=== PATIENT | female | born 1980 | race Caucasian/White ===

== ENCOUNTER 2024-08-06 19:46 | Emergency (ER) | payer OTHER, SELFPAY ==
--- NOTE | ~2024-08-06 | XR_ITS ---
EXAM: XR ankle RT min 3V, XR foot RT min 3V DATE: 08/06/2024 20:12 HISTORY: fall today rolled foot ankle Pain lateral medial . COMPARISON: None available. FINDINGS: Normal mineralization. No fracture or dislocation. No lytic or blastic lesion. Moderate preciado llux valgus. Moderate degenerative change at the first MTP joint. Chronic appearing flattening of the second metatarsal head. Os navicularis. No erosion or periosteal change. Soft tissues within normal limits. IMPRESSION: No acute osseous finding in the right foot or ankle. Reviewed, dictated and finalized at location K. IMPRESSION: No acute osseous finding in the right foot or ankle.
--- OUTSIDE RECORDS SUMMARY | 2024-08-06 19:48 | XMS_ITS | Referral Summary ---
Author Organization [facility] Address [address] [place] [address] Care Team Providers Care Green House Manager Name Role Phone Anurag Velez MD Primary Care Provider [phone] Encounters Date Type Department Care Team Description 06/09/2024 8:09 AM MAT MACHINE OPERATOR - 06/09/2024 11:59 PM MAT MACHINE OPERATOR Hospital Encounter [facility] [address] [place] [address] Screening mammogram, encounter for Discharge Disposition: Discharge to home or self care from Last 3 Months Allergies No known active allergies Medications levonorgestreL (MIRENA) IUDIndications: 12/2019 1 each by intrauterine route once Active Hospital, Clinic, or Other Facility Administered Medication Ordered Dose Route Frequency Start Date End Date Status levonorgestreL (MIRENA) 20 mcg/24 hours (5 yrs) 52 mg IUDIndications:Enc ounter for insertion of Mirena IUD intrauterine Continuous (implanted device) 01/05/2020 5 Active Active Problems No known active problems Resolved Problems Problem Noted Date Diagnosed Date Resolved Date AMA 12/30/2018 06/09/2019 hydronephrosis during , antepartum 11/30/2018 01/27/2019 Overview (11/30/2018): Recheck at 32 weeks incomplete anatomy 11/02/2018 9 Overview (11/02/2018): 11/02/2018 anatomy incomplete for heart views Low-lying placenta 11/02/2018 9 Overview (11/02/2018): 11/02/2018 Repeat in 3rd trimester Multigravida of advanced mat ernal age in first trimester 09/23/2018 06/09/2019 Overview (03/07/2019): First Trimester: [x] Labs [x] Genetic Screenin09/23/18: LR male 2nd Trimester: [x] Anatomy ultrasound 3rd Trimester: [x] CBC, HIV, syphilis screen [x] 1hr GCT (26-28wks): [] Tdap (27-36wks) [] Rhogam (if Rh neg): [x] GBS Immunizations Immunization Administration Dates Next Due Tdap 01/27/2019 Social History Tobacco Use Types Packs/Day Years Used Date Smoking Tobacco: Some Days Cigarettes Last attempted to quit: 09/02/2018 Smokeless Tobacco: Never Alcohol Use Standard Drinks/Week Comments Yes 0 (1 standard drink = 0.6 oz pur e alcohol) Hurley Depression Scale Answer Date Recorded Hurley Depression Scale Total 0 06/09/2019 The thought of harming myself has occurred to me . Never 06/09/2019 Comments No Sex and Gender Information Value Date Recorded Sex Assigned at Not on file Legal Sex Female 3:57 PM MAT MACHINE OPERATOR Gender Identity Not on file Sexual Orientation Not on file Last Filed Vital Signs Vital Sign Reading Time Taken Comments Blood Pressure 108/72 11/06/2021 3:14 PM CDT Pulse 62 12/02/2019 7:58 AM CDT Temperature 36.6 C (97.9 F) 12/02/2019 7:58 AM CDT Respiratory Rate - - Oxygen Saturation 100% 12/02/2019 7:58 AM CDT Inhaled Oxygen Concentration - - Weight 82.6 kg (182 lb) 11/06/2021 3:14 PM CDT Height 170.2 cm (5' 7.01 ) 11/06/2021 3:14 PM CD T Body Mass Index 28.5 11/06/2021 3:14 PM CDT Plan of Treatment Not on file Procedures Procedure Name Priority Date/Time Associated Diagnosis Comments SCREENING MAMMOGRAM BILATERAL W MIGUEL ANGEL Schedule Routine, Read Routine (OP Routine) 06/09/2024 8:29 AM MAT MACHINE OPERATOR Screening mammogram, encounter for THINPREP PAP WITH HPV Routine 06/09/2019 4:07 PM MAT MACHINE OPERATOR Encounter for annual routine gynecological examination HEPATITIS C ANTIBODY Routine 09/07/2018 6:04 PM CDT Missed menses from Last 3 Months or Most Recently Relevant to Health Maintenance Results * Screening Mammogram Bilateral W Miguel Angel (06/09/2024 8:29 AM MAT MACHINE OPERATOR) Anatomical Region Laterality Modality Breast Bilateral Mammography Impressions 06/09/2024 8:33 AM MAT MACHINE OPERATOR BI-RADS ATLAS category (overall): 2 - Benign There is no mammographic evidence of malignancy. A 1 year screening mammogram is recommended. The patient has been or will be contacted. We recommend annual screening mammography for women at average risk of breast cancer beginning at age 40, based on guidelines of the [employer] (ACR Practice Parameter for the Performance of Screening and Diagnostic Mammography) and [employer]. For women with and elevated risk of breast cancer, please refer to the ACR Practice Parameter for specific screening recommendations. The patient will be entered into a reminder system with a target due date of 1 year for her next screening exam. Narrative 06/09/2024 8:33 AM MAT MACHINE OPERATOR Screening Mammogram Bilateral W Miguel Angel: 06/09/24 The study was acquired using full field digital technology and interpreted from soft copy. 2D digital mammographic views, as well as 3D digital tomosynthesis were performed in the CC and MLO projections. CLINICAL: Screening mammogram, encounter for. No relevant medical history has been documented for this patient. History of breast cancer in Neg Hx. COMPARISONS: 01/22/2023 Screening Mammogram Bilateral W Miguel Angel 09/13/2021 US Breast Right Limited 09/13/2021 Diagnostic Mammogram Bilateral W Miguel Angel 09/29/2014 US Guided Breast Biopsy Right 06/29/2014 US Breast Right Complete 06/29/2014 Diagnostic Mammogram Bilateral W Miguel Angel BREAST TISSUE: The breasts are extremely dense, which lowers the sensitivity of mammography. FINDINGS: There is a biopsy clip in the right breast. There are benign calcifications in both breasts.There is no new suspicious finding in either breast on mammogram. us Self Screening Mammogram IMG MAMMO PROCEDURES Fi nal Result * ThinPrep Pap with HPV (06/09/2019 4:07 PM MAT MACHINE OPERATOR) 06/09/2019 4:07 PM MAT MACHINE OPERATOR 06/13/2019 12:36 PM MAT MACHINE OPERATOR Narrative [facility] - 06/16/2019 9:21 AM MAT MACHINE OPERATOR [facility] Department of Pathology [address] [place] [id number] Final Report with Addendum Patient Name: WOODROW KISER Address: [address] [place] [address] Gender: F : 1980 (Age: 39) Service: Laboratory Location: Lab [facility] #: [id number] Patient Type: Ref Lab Taken: 06/09/2019 Received: 06/13/2019 Accessioned:: 06/14/2019 Reported: 06/16/2019 Physician(s): Mona Coelho M.D. [facility] Diagnosis: Source of Specimen: SCREENING IMAGED PAP w/ HPV Specimen Adequacy: - Satisfactory for evaluation; endocervical/transformation zone component present General Category: - Negative for intraepithelial lesion or malignancy Interpretation/Results: - Reactive/reparative cell changes MADY Freed (ASCP) Jaylen Kingston M.D. Report Electronically Reviewed and Signed Out By Jaylen Kingston M.D. 06/16/2019 09:21:59 Addenda: HPV RNA Test Interpretation NEGATIVE for types 16, 18, 31, 33, 35, 39, 45, 51, 52, 56, 58, 59, 66 and 68. Test performed utilizing Gen-Probe Aptima assay. MADY Rivera(ASCP) Report Electronically Reviewed and Signed Out By JULIANA RiveraASCP) 06/15/2019 10:19:34 Specimen(s) Received: A: SCREENING IMAGED PAP w/ HPV Clinical History: Last Menstrual Period: 05/25/19 Menstrual History: The Pap test is a screening test used to aid in the detection of cervical cancer and its precursors. It should not be the sole means by which malignant and premalignant lesions are diagnosed. Both false negative and false positive results may occur. It also has poor sensitivity for the detection of endometrial lesions and should not be used to evaluate suspected endometrial abnormalities. For these reasons it is most important to obtain Pap tests at regular intervals. The performance characteristics of some immunohistochemical stains, fluorescence in-situ hybridization tests and immunophenotyping by flow cytometry cited in this report (if any) were determined by the Surgical Pathology Department at [facility] as part of an ongoing corporate quality assurance manager program and in compliance with federally mandated regulations drawn from the Clinical Laboratory Improvement Act of 1988 (CLIA '88). Some of these tests rely on the use of analyte specific reagents and are subject to specific labeling requirements by the US Food and Drug Administration. Such diagnostic tests may only be performed in a facility that is certified by the Department of Health and Human Services as a high complexity laboratory under CLIA '88. The FDA has determined that such clearance or approval is not necessary. This test is used for clinical purposes. It should not be regarded as investigational or for research. Nevertheless, federal rules concerning the medical use of analyte specific reagents require that the following disclaimer be attached to the report: This test was developed and its performance characteristics determined by the Surgical Pathology Department [facility]. It has not been cleared or approved by the U. S. Food and Drug Administration. Mona Coelho MD LAB CYTOLOGY ORDERABLES Final Re sult [id number] [place] [address] * Hepatitis C antibody (09/07/2018 6:04 PM CDT) Hep C Ab NONREACT NONREACTIVE [facility] Comment: Siemens CentaurXP using AMANDA (chemiluminescent immunoassay) technology. NONREACTIVE: Antibodies to Hepatitis C not detected. This does not exclude early acute Hepatitis C infection, possibility of exposure to Hepatitis C, antibodies below detection limit, or to lack of antibody reactivity to the antigen used in this assay. EQUIVOCAL: Antibodies to Hepatitis C may or may not be present. Sample to be confirmed by real-time PCR method. REACTIVE: Antibodies to Hepatitis C detected.Sample to be confirmed by real-time PCR method. Blood specimen (specimen) 09/07/2018 6:04 PM CDT 09/07/2018 7:17 PM CDT Narrative Resulting Agency Comment CLI Renee Flynn [facility] LAB MICROBIOLOGY - GENE RAL ORDERABLES Final Result [address] [address], [facility] [phone] from Last 3 Months or Most Recently Relevant to Health Maintenance Insurance [facility] [employer] PPO Care Teams Green House Manager Relationship Specialty Start Date End Date Anurag Velez MD [address] [place] [address] PCP - General Family Medicine 04/20/24
--- OUTSIDE RECORDS SUMMARY | 2024-08-06 19:48 | XMS_ITS | Patient Health Summary ---
Author Organization [facility] Address [address] [place] [address] Care Team Providers Care Band Sawing Machine Operator Name Role Phone Unavailable Primary Care Provider Unavailabl e Note from [facility],non-owned Affiliates and Associated Physician Practices is amultiple site organization consisting of ambulatory clinics and hospital sitesin [place], [place], [place] and [place]. This disclosure is being madepursuant to the Care Everywhere program and may not contain all information available regarding this patient. Last updated 18.[facility] Allergies No known active allergies Medications * Be aware that medications may not be up to date on this document. Alwaysverify current medications with the patient. * diclofenac sodium (VOLTAREN) 75 MG tablet(Started 02/04/2010) Take 1 Tab by mouth 2 times daily. 4 refills left Active Problems Problem Noted Date Diagnosed Date Degeneration of lumbar or lumbosacral interverte bral disc 02/04/2010 Social History Tobacco Use Types Packs/Day Years Used Date Smoking Tobacco: Passive Smo ke Exposure - Never Smoker Comments:occasional for past 2 years Alcohol Use Standard Drinks/Week Comments No 0 (1 standard drink = 0.6 oz pur e alcohol) Sex and Gender Information Value Date Recorded Sex Assigned at Not on file Gender Identity Not on file Sexual Orientation Not on file Last Filed Vital Signs Vital Sign Reading Time Taken Comments Blood Pressure - - Pulse - - Temperature - - Respiratory Rate - - Oxygen Saturation - - Inhaled Oxygen Concentration - - Weight 76.7 kg (169 lb) 02/04/2010 7:48 PM CDT Height 170.2 cm (5' 7 ) 02/04/2010 7:48 PM CDT Body Mass Index 26.47 02/04/2010 7:48 PM CDT
--- OUTSIDE RECORDS SUMMARY | 2024-08-06 19:48 | XMS_ITS | Clinical Summary ---
Author Organization [facility] Address [facility] [place] [address] Care Team Providers Care Canary Raiser Name Role Phone Rae Valero MD Primary Care Provider [phone] Allergies No known active allergies Immunizations Name Administration Dates Next Due Tdap (Boostrix) 07/16/2017 Social History Tobacco Use Types Packs/Day Years Used Date Smoking Tobacco: Never Assessed Comments No Sex and Gender Information Value Date Recorded Sex Assigned at Not on file Legal Sex Female 7:11 PM EMPLOYEE SERVICE OFFICER Gender Identity Not on file Sexual Orientation Not on file Last Filed Vital Signs Vital Sign Reading Time Taken Comments Blood Pressure 155/98 07/16/2017 7:15 PM EMPLOYEE SERVICE OFFICER Pulse 99 07/16/2017 7:15 PM EMPLOYEE SERVICE OFFICER Temperature 36.9 C (98.5 F) 07/16/2017 7:15 PM EMPLOYEE SERVICE OFFICER Respiratory Rate 18 07/16/2017 7:15 PM EMPLOYEE SERVICE OFFICER Oxygen Saturation 99% 07/16/2017 7:15 PM EMPLOYEE SERVICE OFFICER Inhaled Oxygen Concentration - - Weight 82.2 kg (181 lb 3.5 oz) 07/16/2017 7:15 P M EMPLOYEE SERVICE OFFICER Height 167.6 cm (5' 6 ) 07/16/2017 7:15 PM EMPLOYEE SERVICE OFFICER Body Mass Index 29.25 07/16/2017 7:15 PM EMPLOYEE SERVICE OFFICER Plan of Treatment Health Maintenance Due Date Last Done Comments Cervical Cancer Screening Pa p Smear (Age 30 to 64) Every 3 Years 1981 Annual Physical 02/16/1984 Hepatitis C 1999 Hepatitis B Vaccines (1 of 3 - 19+ 3-dose series) 02/16/2000 Cervical Cancer Screening Pa p with HPV Testing (Age 30 to 64) Every 5 Years 2011 Cervical Cancer Screening with HPV 2011 Mammogram Screening 2021 COVID-19 Vaccine (1 - 2023-2 5 season) 2024 Influenza Adult (#1) 2024 DTaP, Tdap and Td Vaccines ( 2 - Td or Tdap) 07/16/2027 07/16/2017 HPV Vaccines Aged Out No longer eligi ble based on patient's age to complete this topic Meningococcal B Vaccine Aged Out No l onger eligible based on patient's age to complete this topic Meningococcal Vaccine Aged Out No davey tasia eligible based on patient's age to complete this topic Pneumococcal Vaccine: Pediat rics (0 to 5 Years) and At-Risk Patients (6 to 64 Years) Aged Out No longer eligi ble based on patient's age to complete this topic RSV Immunizations Under 20 Months Aged Out No longer eligible based on patient's age to complete this topic Insurance Care Teams Canary Raiser Relationship Specialty Start Date End Date Rae Valero MD [address], [place] [address] PCP - General FAMILY PRACTICE 07/16/17
--- OUTSIDE RECORDS SUMMARY | 2024-08-06 19:48 | XMS_ITS | Data Portability ---
Author Organization [place] [facility], Main Office Address [address] [place] [address] Care Team Providers Care Weight Reduction Specialist Name Role Phone ANURAG VELEZ Primary Care Provider Assessment Encounter Date Assessment Date Assessment LastModified by Organization Details LastModified Time 07/29/2022 07/29/2022 SUPERVISOR COSTUMING- Reyes Humphries and UTD on Mammogram. Not available 07/29/2022 16:34:59 08/03/2023 08/03/2023 43 yo F with - WELL ADULT VISIT - SMOKER - OVERWEIGHT D/w pt about her findings, recent labs & imagines and further plan of care. Will do routine labs, cxr. Pt declined for hcg. Diet and exercise explained in detail. Educated about different options for her. HM: WWE - 2 yrs ago, normal as per pt. Cont f/u with Gyne as per schedule. Mammo - 10/14, normal as per pt. Pt gets with her Gyne. Flu - 08/03/23. Tdap - 07/12. F/u in 3-4 weeks. Annual labs in 08/16. Not available 08/03/2023 17:20:17 09/24/2023 09/24/2023 The patient gave verbal consent using TelePhonic services and the consent is documented in the medical record prior to using the service. The patient has been informed of what a TeleMedicine visit is. Patient is located at home. Provider is located at office. Names and roles of persons in addition to the patient and provider participating in telemedicine services include none. The patient had a 5 minute TeleMedicine consultation via groSolar to discuss the following: left eye lid swelling, periorbital cellulitis [email or web address] Not available 09/24/2023 11:37:17 Plan of Treatment Reminders Order Date Submit Date Provider Last Modified By Organization Details Last Modified Time Details Appointments None recorded. Lab vitamin D, 25-hydroxy, total, serum [address] (Lab), [address] [place], [address], 4 07:57:22 glycohemogl obin, total, blood [address] (Lab), [address] [place], [address], 4 07:57:22 CBC w/ auto diff [address] (Lab), [address] [place], [address], 4 07:57:21 CMP, serum or plasma [address] (Lab), [address] [place], [address], 4 07:57:21 lipid panel, serum [address] (Lab), [address] [place], [address], 4 07:57:21 TSH, serum, reflex free T4 [address] (Lab), [address] [place], [address], 4 07:57:22 urinalysis complete, reflex culture [address] (Lab), [address] [place], [address], 4 07:57:22 lipid panel, serum 2022 023 [facility], [address] [place], [address], 3 04:23:36 TSH, serum, reflex free T4 2022 023 [email or web address] [facility], [address] [place], [address], 3 08:00:39 CMP, serum or plasma 2022 023 [facility], [address] [place], [address], 3 04:23:37 HbA1c (hemoglobin A1c), blood 2022 023 [facility], [address] [place], [address], 3 04:23:40 CBC w/ auto diff 2022 023 [facility], [address] [place], [address], 3 04:23:38 Referral None recorded. Procedures None recorded. Surgeries None recorded. Imaging XR, chest, 2 view 2023 024 [email or web address] Not available 4 08:59:54 Medication Orders doxycycline monohydrate 100 mg capsule 2023 024 [facility] #[id number], [address] [place], [place], [id number], 4 11:47:33 nicotine 7 mg/24 hr daily transdermal patch 2023 024 [facility] #[id number], [address] [place], [place], [id number], 4 17:19:30 Patient TargetsNo targets recorded. Patient Instructions Encounter Date Encounter Id Patient Instructions Last Modified By Organization Details Last Modified Time 07/29/2022 [id number] FU in 1 year for wellness after 07/30/23 Not available 07/29/2022 16:34:39 08/03/2023 [id number] starting a weigh t loss plan: care instructions [email or web address] Not available 08/03/2023 17:11:51 09/24/2023 [id number] Due to the COVID-19 (Novel Coronavirus) pandemic, it is within this context (and with the understanding that this method of patient encounter is in the patient s best interest as well as the health and safety of other patients and the public) that telehealth is being provided for this patient encounter rather than a tapl-ap-vred visit. This patient encounter is appropriate at this time. This patient has been advised of the potential risks and limitations of this mode of treatment (including, but not limited to, the absence of in-person examination) and has agreed to be treated in a remote fashion despite these risks. Any and all of the patient s/patient s family s questions on this issue have been answered, and I have made no promises or guarantees to the patient. The patient has also been advised to contact this office for worsening conditions or problems, and seek emergency medical treatment and/or call 911 if the patient deems either necessary. HPI and/or vitals, if listed, were provided by the patient. [email or web address] Not available 09/24/2023 11:23:22 Reason for Referral None Reported. Results Created Date Observation Date Name Description Value Unit Range Abnormal Flag Note LastModifiedBy Organization Detail LastModifiedTime 09/21/1909/21/2020 TSH, serum or plasm a TSH w/reflex to FT4 1.19 mIU/L normal Refer ence Range > or = 20 Years 0.40- 4.50 Pregn margarito Range s First trime ster 0.26- 2.66 Secon d trime ster 0.55- 2.73 Third trime ster 0.43- 2.91 Not Available [employer] [facility] [address] [address] , [place], [address], 09/21/2020 04:15:40 09/21/19 21 09/21/2020 CBC w/ auto diff hemoglobin 14.4 g/dL 11.7-1 5.5 normal Not Available [address], [address], 09/21/2020 04:15:39 09/21/19 21 09/21/2020 CBC w/ auto diff white blood cell count 5.5 thous and/u L 3.8-10 .8 normal Not Available [address], [address], 09/21/2020 04:15:39 09/21/19 21 09/21/2020 CBC w/ auto diff red blood cell count 4.72 nargis on/uL 3.80-5 .10 normal Not Available [address], [address], 09/21/2020 04:15:39 09/21/19 21 09/21/2020 CBC w/ auto diff hematocrit 42.1 % 35.0-4 5.0 normal Not Available [address], [address], 09/21/2020 04:15:39 09/21/19 21 09/21/2020 CBC w/ auto diff MCV 89.2 fL 80.0-1 00.0 normal Not Available [address], [address], 09/21/2020 04:15:39 09/21/19 21 09/21/2020 CBC w/ auto diff MCH 30.5 pg 27.0-3 3.0 normal Not Available [address], [address], 09/21/2020 04:15:39 09/21/19 21 09/21/2020 CBC w/ auto diff MCHC 34.2 g/dL 32.0-3 6.0 normal Not Available [address], [address], 09/21/2020 04:15:39 09/21/19 21 09/21/2020 CBC w/ auto diff RDW 12.0 % 11.0-1 5.0 normal Not Available [address], [address], 09/21/2020 04:15:39 09/21/19 21 09/21/2020 CBC w/ auto diff platelet count 201 thous and/u L 140-40 0 normal Not Available [address], [address], 09/21/2020 04:15:39 09/21/19 21 09/21/2020 CBC w/ auto diff MPV 10.2 fL 7.5-12 .5 normal Not Available [address], [address], 09/21/2020 04:15:39 09/21/19 21 09/21/2020 CBC w/ auto diff absolute neutrophils 3537 cells /uL 1500-7 800 normal Not Available [address], [address], 09/21/2020 04:15:39 09/21/19 21 09/21/2020 CBC w/ auto diff absolute lymphocytes 1535 cells /uL 850-39 00 normal Not Available [address], [address], 09/21/2020 04:15:39 09/21/19 21 09/21/2020 CBC w/ auto diff absolute monocytes 341 cells /uL 200-95 0 normal Not Available [address], [address], 09/21/2020 04:15:39 09/21/19 21 09/21/2020 CBC w/ auto diff absolute eosinophils 61 cells /uL 15-500 normal Not Available [address], [address], 09/21/2020 04:15:39 09/21/19 21 09/21/2020 CBC w/ auto diff absolute basophils 28 cells /uL 0-200 normal Not Available [address], [address], 09/21/2020 04:15:39 09/21/19 21 09/21/2020 CBC w/ auto diff neutrophils 64.3 % normal Not Available [address], [address], 09/21/2020 04:15:39 09/21/19 21 09/21/2020 CBC w/ auto diff lymphocytes 27.9 % normal Not Available [address], [address], 09/21/2020 04:15:39 09/21/19 21 09/21/2020 CBC w/ auto diff monocytes 6.2 % normal Not Available [address], [address], 09/21/2020 04:15:39 09/21/19 21 09/21/2020 CBC w/ auto diff eosinophils 1.1 % normal Not Available [address], [address], 09/21/2020 04:15:39 09/21/19 21 09/21/2020 CBC w/ auto diff basophils 0.5 % normal Not Available [address], [address], 09/21/2020 04:15:39 09/21/19 21 09/21/2020 CMP, serum or plasm a glucose 92 mg/dL 65-99 normal Fasti ng refer ence inter merritt Not Available [address], [address], 09/21/2020 04:15:39 09/21/19 21 09/21/2020 CMP, serum or plasm a urea nitrogen (BUN) 10 mg/dL 7-25 normal Not Available [address], [address], 09/21/2020 04:15:39 09/21/19 21 09/21/2020 CMP, serum or plasm a creatinine 0.62 mg/dL 0.50-1 .10 normal Not Available [address], [address], 09/21/2020 04:15:39 09/21/19 21 09/21/2020 CMP, serum or plasm a eGFR non-afr. moldovan 114 mL/mi n/1.7 3m2 > or = 60 normal Not Available [address], [address], 09/21/2020 04:15:39 09/21/19 21 09/21/2020 CMP, serum or plasm a eGFR 132 mL/mi n/1.7 3m2 > or = 60 normal Not Available [address], [address], 09/21/2020 04:15:39 09/21/19 21 09/21/2020 CMP, serum or plasm a BUN/creatini ne ratio not applic able (calc ) 6-22 Not Available [address], [address], 09/21/2020 04:15:39 09/21/19 21 09/21/2020 CMP, serum or plasm a sodium 137 mmol/ L 135-14 6 normal Not Available [facility] [address], [address], 09/21/2020 04:15:39 09/21/19 21 09/21/2020 CMP, serum or plasm a potassium 4.0 mmol/ L 3.5-5. 3 normal Not Available [facility] [address] [address] [place], [address], 09/21/2020 04:15:39 09/21/19 21 09/21/2020 CMP, serum or plasm a chloride 104 mmol/ L 98-110 normal Not Available [address], [address], 09/21/2020 04:15:39 09/21/19 21 09/21/2020 CMP, serum or plasm a carbon dioxide 27 mmol/ L 20-32 normal Not Available [address], [address], 09/21/2020 04:15:39 09/21/19 21 09/21/2020 CMP, serum or plasm a calcium 9.2 mg/dL 8.6-10 .2 normal Not Available [address], [address], 09/21/2020 04:15:39 09/21/19 21 09/21/2020 CMP, serum or plasm a protein, total 6.8 g/dL 6.1-8. 1 normal Not Available [address], [address], 09/21/2020 04:15:39 09/21/19 21 09/21/2020 CMP, serum or plasm a albumin 4.4 g/dL 3.6-5. 1 normal Not Available [address], [address], 09/21/2020 04:15:39 09/21/19 21 09/21/2020 CMP, serum or plasm a globulin 2.4 g/dL_ (calc ) 1.9-3. 7 normal Not Available [address], [address], 09/21/2020 04:15:39 09/21/19 21 09/21/2020 CMP, serum or plasm a albumin/glob ulin ratio 1.8 (calc ) 1.0-2. 5 normal Not Available [address], [place], [address], 09/21/2020 04:15:39 09/21/19 21 09/21/2020 CMP, serum or plasm a bilirubin, total 0.8 mg/dL 0.2-1. 2 normal Not Available [facility] [address] [address] [place], [address], 09/21/2020 04:15:39 09/21/19 21 09/21/2020 CMP, serum or plasm a alkaline phosphatase 56 U/L 31-125 normal Not Available [facility] [address] [address] [place], [address], 09/21/2020 04:15:39 09/21/19 21 09/21/2020 CMP, serum or plasm a AST 11 U/L 10-30 normal Not Available [address] [address] [place], [address], 09/21/2020 04:15:39 09/21/19 21 09/21/2020 CMP, serum or plasm a ALT 7 U/L 6-29 normal Not Available [address], [address], 09/21/2020 04:15:39 09/21/19 21 09/21/2020 lipid panel , serum LDL-choleste rol 72 mg/dL _(parris c) normal Refer ence range : <100 Janie able range <100 mg/dL for prima ry preve ntion ; <70 mg/dL for patie nts with CHD or diabe tic patie nts with > or = 2 CHD risk facto rs. LDL-C is now calcu lated using the Alexandrea n-Hop kins moreno szymanski n, which is a valid ated novel naseem pena accur acy than the Fried kasey equat ion in the estim ation of LDL-C . Alexandrea vo SS et al. RONNIE. 2013; 310(1 9): 2061- 2068 (http ://ed ucati on.Qu estDi agnos tics. com/f aq/FA Q164) Not Available [address] [address] [place], [address], 09/21/2020 04:15:39 09/21/19 21 09/21/2020 lipid panel , serum cholesterol, total 148 mg/dL <200 normal Not Available [address] [address] [place], [address], 09/21/2020 04:15:39 09/21/19 21 09/21/2020 lipid panel , serum HDL cholesterol 56 mg/dL > or = 50 normal Not Available [address] [address] [place], [address], 09/21/2020 04:15:39 09/21/19 21 09/21/2020 lipid panel , serum triglyceride s 110 mg/dL <150 normal Not Available [address] [address] [place], [address], 09/21/2020 04:15:39 09/21/19 21 09/21/2020 lipid panel , serum chol/HDLC ratio 2.6 (calc ) <5.0 normal Not Available [address] [address] [place], [address], 09/21/2020 04:15:39 09/21/19 21 09/21/2020 lipid panel , serum non HDL cholesterol 92 mg/dL _(parris c) <130 normal For patie nts with diabe lashae plus 1 major ASCVD risk facto r, treat ing to a non-H DL-C goal of <100 mg/dL (LDL- C of <70 mg/dL ) is becky augusteo n. Not Available [address] [address] [place], [address], 09/21/2020 04:15:39 08/02/19 22 08/02/2021 HEMOG LOBIN A1C hemoglobin A1C 4.8 %_of_ total _HGB <5.7 normal For the purpo se of sridevi rowellg for the prese nce of diabe lashae: <5.7% Consi stent with the absen ce of diabe lashae 5.7-6 .4% Consi stent with incre ased risk for diabe lashae (pred iabet es) > or =6.5% Consi stent with diabe lashae This assay resul t is consi stent with a decre ased risk of diabe lashae. Curre ntly, no conse nsus exist s juwan sanchez use of hemog lobin A1c for diagn osis of diabe lashae in child irish. Accor ding to Ameri can Diabe lashae Assoc iatio n (ADA) guide lines , hemog lobin A1c <7.0% repre sents optim al contr ol in non-p regna nt diabe tic patie nts. Diffe rent metri cs may apply to speci fic patie nt popul ation s. Stand ards of Medic al Care in Diabe lashae(A DA). Not Available [employer] [address] [address] [place], [address], 08/02/2021 04:26:24 08/02/19 22 08/02/2021 TSH W/REF FILI TO FT4 TSH w/reflex to FT4 1.68 mIU/L normal Refer ence Range > or = 20 Years 0.40- 4.50 Pregn margarito Range s First trime ster 0.26- 2.66 Secon d trime ster 0.55- 2.73 Third trime ster 0.43- 2.91 Not Available [facility] [address] [address] [place], [address], 08/02/2021 04:26:24 08/02/19 22 08/02/2021 CBC (INCL UDES DIFF/ PLT) white blood cell count 5.1 thous and/u L 3.8-10 .8 normal Not Available [facility] [address] [place], [address], 08/02/2021 04:26:23 08/02/19 22 08/02/2021 CBC (INCL UDES DIFF/ PLT) red blood cell count 4.83 nargis on/uL 3.80-5 .10 normal Not Available [address], [address], 08/02/2021 04:26:23 08/02/19 22 08/02/2021 CBC (INCL UDES DIFF/ PLT) hemoglobin 14.6 g/dL 11.7-1 5.5 normal Not Available [address], [address], 08/02/2021 04:26:23 08/02/19 22 08/02/2021 CBC (INCL UDES DIFF/ PLT) hematocrit 42.9 % 35.0-4 5.0 normal Not Available [address], [address], 08/02/2021 04:26:23 08/02/19 22 08/02/2021 CBC (INCL UDES DIFF/ PLT) MCV 88.8 fL 80.0-1 00.0 normal Not Available [address], [address], 08/02/2021 04:26:23 08/02/19 22 08/02/2021 CBC (INCL UDES DIFF/ PLT) MCH 30.2 pg 27.0-3 3.0 normal Not Available [address], [address], 08/02/2021 04:26:23 08/02/19 22 08/02/2021 CBC (INCL UDES DIFF/ PLT) MCHC 34.0 g/dL 32.0-3 6.0 normal Not Available [address], [address], 08/02/2021 04:26:23 08/02/19 22 08/02/2021 CBC (INCL UDES DIFF/ PLT) RDW 12.1 % 11.0-1 5.0 normal Not Available [address], [place], [address], 08/02/2021 04:26:23 08/02/19 22 08/02/2021 CBC (INCL UDES DIFF/ PLT) platelet count 219 thous and/u L 140-40 0 normal Not Available [address], [address], 08/02/2021 04:26:23 08/02/19 22 08/02/2021 CBC (INCL UDES DIFF/ PLT) MPV 10.3 fL 7.5-12 .5 normal Not Available [facility] [address], [address], 08/02/2021 04:26:23 08/02/19 22 08/02/2021 CBC (INCL UDES DIFF/ PLT) absolute neutrophils 2943 cells /uL 1500-7 800 normal Not Available [address], [address], 08/02/2021 04:26:23 08/02/19 22 08/02/2021 CBC (INCL UDES DIFF/ PLT) absolute lymphocytes 1709 cells /uL 850-39 00 normal Not Available [address], [address], 08/02/2021 04:26:23 08/02/19 22 08/02/2021 CBC (INCL UDES DIFF/ PLT) absolute monocytes 357 cells /uL 200-95 0 normal Not Available [address], [address], 08/02/2021 04:26:23 08/02/19 22 08/02/2021 CBC (INCL UDES DIFF/ PLT) absolute eosinophils 61 cells /uL 15-500 normal Not Available [address], [address], 08/02/2021 04:26:23 08/02/19 22 08/02/2021 CBC (INCL UDES DIFF/ PLT) absolute basophils 31 cells /uL 0-200 normal Not Available [address], [address], 08/02/2021 04:26:23 08/02/19 22 08/02/2021 CBC (INCL UDES DIFF/ PLT) neutrophils 57.7 % normal Not Available [address], [address], 08/02/2021 04:26:23 08/02/19 22 08/02/2021 CBC (INCL UDES DIFF/ PLT) lymphocytes 33.5 % normal Not Available [address], [address], 08/02/2021 04:26:23 08/02/19 22 08/02/2021 CBC (INCL UDES DIFF/ PLT) monocytes 7.0 % normal Not Available [address], [address], 08/02/2021 04:26:23 08/02/19 22 08/02/2021 CBC (INCL UDES DIFF/ PLT) eosinophils 1.2 % normal Not Available [address], [address], 08/02/2021 04:26:23 08/02/19 22 08/02/2021 CBC (INCL UDES DIFF/ PLT) basophils 0.6 % normal Not Available [address], [address], 08/02/2021 04:26:23 08/02/19 22 08/02/2021 COMPR EHENS MATT METAB OLIC PANEL eGFR non-afr. moldovan 111 mL/mi n/1.7 3m2 > or = 60 normal Not Available [address], [address], 08/02/2021 04:26:22 08/02/19 22 08/02/2021 COMPR EHENS MATT METAB OLIC PANEL glucose 86 mg/dL 65-99 normal Fasti ng refer ence inter merritt Not Available [address], [address], 08/02/2021 04:26:22 08/02/19 22 08/02/2021 COMPR EHENS MATT METAB OLIC PANEL urea nitrogen (BUN) 11 mg/dL 7-25 normal Not Available [address], [address], 08/02/2021 04:26:22 08/02/19 22 08/02/2021 COMPR EHENS MATT METAB OLIC PANEL creatinine 0.65 mg/dL 0.50-1 .10 normal Not Available [address], [address], 08/02/2021 04:26:22 08/02/19 22 08/02/2021 COMPR EHENS MATT METAB OLIC PANEL eGFR 129 mL/mi n/1.7 3m2 > or = 60 normal Not Available [address], [address], 08/02/2021 04:26:22 08/02/19 22 08/02/2021 COMPR EHENS MATT METAB OLIC PANEL BUN/creatini ne ratio not applic able (calc ) 6-22 Not Available [address], [address], 08/02/2021 04:26:22 08/02/19 22 08/02/2021 COMPR EHENS MATT METAB OLIC PANEL sodium 140 mmol/ L 135-14 6 normal Not Available [address], [address], 08/02/2021 04:26:22 08/02/19 22 08/02/2021 COMPR EHENS MATT METAB OLIC PANEL potassium 4.0 mmol/ L 3.5-5. 3 normal Not Available [address] [place], [address], 08/02/2021 04:26:22 08/02/19 22 08/02/2021 COMPR EHENS MATT METAB OLIC PANEL chloride 105 mmol/ L 98-110 normal Not Available [facility] [address], [address], 08/02/2021 04:26:22 08/02/19 22 08/02/2021 COMPR EHENS MATT METAB OLIC PANEL carbon dioxide 28 mmol/ L 20-32 normal Not Available [facility] [address], [address], 08/02/2021 04:26:22 08/02/19 22 08/02/2021 COMPR EHENS MATT METAB OLIC PANEL calcium 9.3 mg/dL 8.6-10 .2 normal Not Available [address], [address], 08/02/2021 04:26:22 08/02/19 22 08/02/2021 COMPR EHENS MATT METAB OLIC PANEL protein, total 6.8 g/dL 6.1-8. 1 normal Not Available [facility] [address], [address], 08/02/2021 04:26:22 08/02/19 22 08/02/2021 COMPR EHENS MATT METAB OLIC PANEL albumin 4.6 g/dL 3.6-5. 1 normal Not Available [address], [address], 08/02/2021 04:26:22 08/02/19 22 08/02/2021 COMPR EHENS MATT METAB OLIC PANEL globulin 2.2 g/dL_ (calc ) 1.9-3. 7 normal Not Available [facility] [address], [address], 08/02/2021 04:26:22 08/02/19 22 08/02/2021 COMPR EHENS MATT METAB OLIC PANEL albumin/glob ulin ratio 2.1 (calc ) 1.0-2. 5 normal Not Available [address], [address], 08/02/2021 04:26:22 08/02/19 22 08/02/2021 COMPR EHENS MATT METAB OLIC PANEL bilirubin, total 0.8 mg/dL 0.2-1. 2 normal Not Available [address] [address] [place], [address], 08/02/2021 04:26:22 08/02/19 22 08/02/2021 COMPR EHENS MATT METAB OLIC PANEL alkaline phosphatase 53 U/L 31-125 normal Not Available [address] [address] [place], [address], 08/02/2021 04:26:22 08/02/19 22 08/02/2021 COMPR EHENS MATT METAB OLIC PANEL AST 10 U/L 10-30 normal Not Available [address], [address], 08/02/2021 04:26:22 08/02/19 22 08/02/2021 COMPR EHENS MATT METAB OLIC PANEL ALT 8 U/L 6-29 normal Not Available [address] [address] [place], [address], 08/02/2021 04:26:22 08/02/19 22 08/02/2021 LIPID PANEL , STAND ALISSA non HDL cholesterol 108 mg/dL _(parris c) <130 normal For patie nts with diabe lashae plus 1 major ASCVD risk facto r, treat ing to a non-H DL-C goal of <100 mg/dL (LDL- C of <70 mg/dL ) is consi miked a manuel peuti c optio n. Not Available [address] [address] [place], [address], 08/02/2021 04:26:22 08/02/19 22 08/02/2021 LIPID PANEL , STAND ALISSA cholesterol, total 160 mg/dL <200 normal Not Available [address], [address], 08/02/2021 04:26:22 08/02/19 22 08/02/2021 LIPID PANEL , STAND ALISSA HDL cholesterol 52 mg/dL > or = 50 normal Not Available [address], [address], 08/02/2021 04:26:22 08/02/19 22 08/02/2021 LIPID PANEL , STAND ALISSA triglyceride s 119 mg/dL <150 normal Not Available [address], [address], 08/02/2021 04:26:22 08/02/19 22 08/02/2021 LIPID PANEL , STAND ALISSA LDL-choleste rol 86 mg/dL _(parris c) normal Refer ence range : <100 Janie able range <100 mg/dL for prima ry preve ntion ; <70 mg/dL for patie nts with CHD or diabe tic patie nts with > or = 2 CHD risk facto rs. LDL-C is now calcu lated using the Alexandrea n-Hop kins calcu nessa n, which is a valid ated novel elvino d janeen mcdonald r accur acy than the Fried kasey equat ion in the estim ation of LDL-C . Alexandrea vo SS et al. RONNIE. 2013; 310(1 9): 2061- 2068 (http ://ed ucati on.Qu [employer]. com/f aq/FA Q164) Not Available [address] [address] [place], [address], 08/02/2021 04:26:22 08/02/19 22 08/02/2021 LIPID PANEL , STAND ALISSA chol/HDLC ratio 3.1 (calc ) <5.0 normal Not Available [address] [place], [address], 08/02/2021 04:26:22 08/16/1908/16/2022 LIPID PANEL , STAND ALISSA cholesterol, total 159 mg/dL <200 normal Not Available [facility] [address] [address] [place], [address], 08/16/2022 04:23:36 08/16/1908/16/2022 LIPID PANEL , STAND ALISSA HDL cholesterol 58 mg/dL > or = 50 normal Not Available [facility] [address] [address] [place], [address], 08/16/2022 04:23:36 08/16/1908/16/2022 LIPID PANEL , STAND ALISSA triglyceride s 97 mg/dL <150 normal Not Available [address] [address] [place], [address], 08/16/2022 04:23:36 08/16/1908/16/2022 LIPID PANEL , STAND ALISSA LDL-choleste rol 82 mg/dL _(parris c) normal Refer ence range : <100 Janie able range <100 mg/dL for prima ry preve ntion ; <70 mg/dL for patie nts with CHD or diabe tic patie nts with > or = 2 CHD risk facto rs. LDL-C is now calcu lated using the Alexandrea n-Hop kins moreno szymanski n, which is a valid ated novel elvino tracey pena accur acy than the Fried kasey equat ion in the estim ation of LDL-C . Alexandrea vo SS et al. RONNIE. 2013; 310(1 9): 2061- 2068 (http ://ed ucati on.Qu Duy [employer]. com/f aq/FA Q164) Not Available [facility] [address] [address] [address] , [place], [address], 08/16/2022 04:23:36 08/16/1908/16/2022 LIPID PANEL , STAND ALISSA chol/HDLC ratio 2.7 (calc ) <5.0 normal Not Available [address], [address], 08/16/2022 04:23:36 08/16/19 23 08/16/2022 LIPID PANEL , STAND ALISSA non HDL cholesterol 101 mg/dL _(parris c) <130 normal For patie nts with diabe lashae plus 1 major ASCVD risk facto r, treat ing to a non-H DL-C goal of <100 mg/dL (LDL- C of <70 mg/dL ) is consi dered a thera peuti c optio n. Not Available [address], [address], 08/16/2022 04:23:36 08/16/19 23 08/16/2022 COMPR EHENS MATT METAB OLIC PANEL glucose 77 mg/dL 65-99 normal Fasti ng refer ence inter merritt Not Available [address] [address] [place], [address], 08/16/2022 04:23:37 08/16/19 23 08/16/2022 COMPR EHENS MATT METAB OLIC PANEL urea nitrogen (BUN) 10 mg/dL 7-25 normal Not Available [facility] [address], [address], 08/16/2022 04:23:37 08/16/19 23 08/16/2022 COMPR EHENS MATT METAB OLIC PANEL creatinine 0.72 mg/dL 0.50-0 .99 normal Not Available [facility] [facility] [address], [address], 08/16/2022 04:23:37 08/16/19 23 08/16/2022 COMPR EHENS MATT METAB OLIC PANEL eGFR 108 mL/mi n/1.7 3m2 > or = 60 normal The eGFR is based on the CKD-E PI 2020 equat ion. To calcu late the new eGFR from a previ ous Creat inine or Cysta tin C resul t, go to https ://yuki mars.[email or web address] [email or web address] zacarias/pr ofess ional s/ kdoqi /gfr% 5Fcal culat or Not Available [address], [address], 08/16/2022 04:23:37 08/16/19 23 08/16/2022 COMPR EHENS MATT METAB OLIC PANEL BUN/creatini ne ratio NOT APPLIC ABLE (calc ) 6-22 Not Available [address], [address], 08/16/2022 04:23:37 08/16/19 23 08/16/2022 COMPR EHENS MATT METAB OLIC PANEL sodium 140 mmol/ L 135-14 6 normal Not Available [address], [address], 08/16/2022 04:23:37 08/16/19 23 08/16/2022 COMPR EHENS MATT METAB OLIC PANEL potassium 4.0 mmol/ L 3.5-5. 3 normal Not Available [address], [address], 08/16/2022 04:23:37 08/16/19 23 08/16/2022 COMPR EHENS MATT METAB OLIC PANEL chloride 106 mmol/ L 98-110 normal Not Available [address], [address], 08/16/2022 04:23:37 08/16/19 23 08/16/2022 COMPR EHENS MATT METAB OLIC PANEL carbon dioxide 26 mmol/ L 20-32 normal Not Available [address], [address], 08/16/2022 04:23:37 08/16/19 23 08/16/2022 COMPR EHENS MATT METAB OLIC PANEL calcium 9.2 mg/dL 8.6-10 .2 normal Not Available [address], [address], 08/16/2022 04:23:37 08/16/19 23 08/16/2022 COMPR EHENS MATT METAB OLIC PANEL protein, total 6.6 g/dL 6.1-8. 1 normal Not Available [address], [address], 08/16/2022 04:23:37 08/16/19 23 08/16/2022 COMPR EHENS MATT METAB OLIC PANEL albumin 4.5 g/dL 3.6-5. 1 normal Not Available [address], [address], 08/16/2022 04:23:37 08/16/19 23 08/16/2022 COMPR EHENS MATT METAB OLIC PANEL globulin 2.1 g/dL_ (calc ) 1.9-3. 7 normal Not Available [address], [address], 08/16/2022 04:23:37 08/16/19 23 08/16/2022 COMPR EHENS MATT METAB OLIC PANEL albumin/glob ulin ratio 2.1 (calc ) 1.0-2. 5 normal Not Available [address], [address], 08/16/2022 04:23:37 08/16/19 23 08/16/2022 COMPR EHENS MATT METAB OLIC PANEL bilirubin, total 0.6 mg/dL 0.2-1. 2 normal Not Available [address], [address], 08/16/2022 04:23:37 08/16/19 23 08/16/2022 COMPR EHENS MATT METAB OLIC PANEL alkaline phosphatase 53 U/L 31-125 normal Not Available [address], [address], 08/16/2022 04:23:37 08/16/19 23 08/16/2022 COMPR EHENS MATT METAB OLIC PANEL AST 13 U/L 10-30 normal Not Available [address], [address], 08/16/2022 04:23:37 08/16/19 23 08/16/2022 COMPR EHENS MATT METAB OLIC PANEL ALT 9 U/L 6-29 normal Not Available [address], [address], 08/16/2022 04:23:37 08/16/19 23 08/16/2022 CBC (INCL UDES DIFF/ PLT) white blood cell count 7.1 thous and/u L 3.8-10 .8 normal Not Available [address], [address], 08/16/2022 04:23:38 08/16/19 23 08/16/2022 CBC (INCL UDES DIFF/ PLT) red blood cell count 4.78 nargis on/uL 3.80-5 .10 normal Not Available [address], [address], 08/16/2022 04:23:38 08/16/19 23 08/16/2022 CBC (INCL UDES DIFF/ PLT) hemoglobin 14.8 g/dL 11.7-1 5.5 normal Not Available [address], [address], 08/16/2022 04:23:38 08/16/19 23 08/16/2022 CBC (INCL UDES DIFF/ PLT) hematocrit 42.9 % 35.0-4 5.0 normal Not Available [address], [address], 08/16/2022 04:23:38 08/16/19 23 08/16/2022 CBC (INCL UDES DIFF/ PLT) MCV 89.7 fL 80.0-1 00.0 normal Not Available [address], [address], 08/16/2022 04:23:38 08/16/19 23 08/16/2022 CBC (INCL UDES DIFF/ PLT) MCH 31.0 pg 27.0-3 3.0 normal Not Available [address], [address], 08/16/2022 04:23:38 08/16/19 23 08/16/2022 CBC (INCL UDES DIFF/ PLT) MCHC 34.5 g/dL 32.0-3 6.0 normal Not Available [address], [address], 08/16/2022 04:23:38 08/16/1908/16/2022 CBC (INCL UDES DIFF/ PLT) RDW 12.3 % 11.0-1 5.0 normal Not Available [address], [address], 08/16/2022 04:23:38 08/16/19 23 08/16/2022 CBC (INCL UDES DIFF/ PLT) platelet count 220 thous and/u L 140-40 0 normal Not Available [address], [address], 08/16/2022 04:23:38 08/16/19 23 08/16/2022 CBC (INCL UDES DIFF/ PLT) MPV 10.1 fL 7.5-12 .5 normal Not Available [address], [address], 08/16/2022 04:23:38 08/16/19 23 08/16/2022 CBC (INCL UDES DIFF/ PLT) absolute neutrophils 4381 cells /uL 1500-7 800 normal Not Available [address], [address], 08/16/2022 04:23:38 08/16/19 23 08/16/2022 CBC (INCL UDES DIFF/ PLT) absolute lymphocytes 2024 cells /uL 850-39 00 normal Not Available [address], [address], 08/16/2022 04:23:38 08/16/19 23 08/16/2022 CBC (INCL UDES DIFF/ PLT) absolute monocytes 525 cells /uL 200-95 0 normal Not Available [address], [address], 08/16/2022 04:23:38 08/16/19 23 08/16/2022 CBC (INCL UDES DIFF/ PLT) absolute eosinophils 128 cells /uL 15-500 normal Not Available [address], [address], 08/16/2022 04:23:38 08/16/19 23 08/16/2022 CBC (INCL UDES DIFF/ PLT) absolute basophils 43 cells /uL 0-200 normal Not Available [address], [address], 08/16/2022 04:23:38 08/16/19 23 08/16/2022 CBC (INCL UDES DIFF/ PLT) neutrophils 61.7 % normal Not Available [address], [address], 08/16/2022 04:23:38 08/16/19 23 08/16/2022 CBC (INCL UDES DIFF/ PLT) lymphocytes 28.5 % normal Not Available [address], [address], 08/16/2022 04:23:38 08/16/19 23 08/16/2022 CBC (INCL UDES DIFF/ PLT) monocytes 7.4 % normal Not Available [address], [address], 08/16/2022 04:23:38 08/16/1908/16/2022 CBC (INCL UDES DIFF/ PLT) eosinophils 1.8 % normal Not Available [address], [address], 08/16/2022 04:23:38 08/16/1908/16/2022 CBC (INCL UDES DIFF/ PLT) basophils 0.6 % normal Not Available [address] [address] [place], [address], 08/16/2022 04:23:38 08/16/1908/16/2022 TSH W/REF FILI TO FT4 TSH w/reflex to FT4 2.00 mIU/L normal Refer ence Range > or = 20 Years 0.40- 4.50 Pregn margarito Range s First trime ster 0.26- 2.66 Secon d trime ster 0.55- 2.73 Third trime ster 0.43- 2.91 Not Available [address], [place], [address], 08/16/2022 04:23:39 08/16/1908/16/2022 HEMOG LOBIN A1C hemoglobin A1C 4.8 %_of_ total _HGB <5.7 normal For the purpo se of sridevi betts for the prese nce of diabe lashae: <5.7% Consi stent with the absen ce of diabe lashae 5.7-6 .4% Consi stent with incre ased risk for diabe lashae (pred iabet es) > or =6.5% Consi stent with diabe lashae This assay resul t is consi stent with a decre ased risk of diabe lashae. Curre ntly, no conse nsus exist s juwan sanchez use of hemog lobin A1c for diagn osis of diabe lashae in child irish. Accor daniel to Ameri can Diabe lashae Assoc iatio n (ADA) guide lines , hemog lobin A1c <7.0% repre sents optim al contr ol in non-p regna nt diabe tic patie nts. Diffe rent metri cs may apply to speci fic patie nt popul ation s. [facility] Medic al [facility] in Diabe lashae(A DA). Not Available [facility] [address] [address] [place], [address], 08/16/2022 04:23:40 11/03/19 24 11/04/2023 LIPID PANEL , STAND ALISSA cholesterol, total 156 mg/dL <200 normal Not Available [facility] [address] [address] [place], [address], 11/04/2023 22:55:38 11/03/19 24 11/04/2023 LIPID PANEL , STAND ALISSA HDL cholesterol 50 mg/dL > or = 50 normal Not Available [facility] [address] [address] [place], [address], 11/04/2023 22:55:38 11/03/19 24 11/04/2023 LIPID PANEL , STAND ALISSA triglyceride s 118 mg/dL <150 normal Not Available [facility] [address] [address] [place], [address], 11/04/2023 22:55:38 11/03/19 24 11/04/2023 LIPID PANEL , STAND ALISSA LDL-choleste rol 85 mg/dL _(parris c) normal Refer ence range : <100 Janie able range <100 mg/dL for prima ry preve ntion ; <70 mg/dL for patie nts with CHD or diabe tic patie nts with > or = 2 CHD risk facto rs. LDL-C is now calcu lated using the Alexandrea n-Hop kins moreno szymanski n, which is a valid ated novel naseem bradford than the Joey parks equat ion in the estim ation of LDL-C . Alexandrea vo SS et al. RONINE. 2013; 310(1 9): 2061- 2068 (http ://ed ucati on.Qu Duy [employer]. com/f aq/FA Q164) Not Available [address], [address], 11/04/2023 22:55:38 11/03/19 24 11/04/2023 LIPID PANEL , STAND ALISSA chol/HDLC ratio 3.1 (calc ) <5.0 normal Not Available [address], [address], 11/04/2023 22:55:38 11/03/19 24 11/04/2023 LIPID PANEL , STAND ALISSA non HDL cholesterol 106 mg/dL _(parris c) <130 normal For patie nts with diabe lashae plus 1 major ASCVD risk facto r, treat ing to a non-H DL-C goal of <100 mg/dL (LDL- C of <70 mg/dL ) is consi zafar a manuel martinez c optio n. Not Available [address], [address], 11/04/2023 22:55:38 11/03/19 24 11/04/2023 COMPR EHENS MATT METAB OLIC PANEL glucose 77 mg/dL 65-99 normal Fasti ng refer ence inter merritt Not Available [address], [address], 11/04/2023 22:55:39 11/03/19 24 11/04/2023 COMPR EHENS MATT METAB OLIC PANEL urea nitrogen (BUN) 11 mg/dL 7-25 normal Not Available [address], [address], 11/04/2023 22:55:39 11/03/19 24 11/04/2023 COMPR EHENS MATT METAB OLIC PANEL creatinine 0.71 mg/dL 0.50-0 .99 normal Not Available [address], [address], 11/04/2023 22:55:39 11/03/19 24 11/04/2023 COMPR EHENS MATT METAB OLIC PANEL eGFR 109 mL/mi n/1.7 3m2 > or = 60 normal Not Available [address], [address], 11/04/2023 22:55:39 11/03/19 24 11/04/2023 COMPR EHENS MATT METAB OLIC PANEL BUN/creatini ne ratio SEE NOTE: (calc ) 6-22 Not Repor danielle: BUN and Creat inine are withi n refer ence range . Not Available [address], [address], 11/04/2023 22:55:39 11/03/19 24 11/04/2023 COMPR EHENS MATT METAB OLIC PANEL sodium 137 mmol/ L 135-14 6 normal Not Available [address], [address], 11/04/2023 22:55:39 11/03/19 24 11/04/2023 COMPR EHENS MATT METAB OLIC PANEL potassium 4.1 mmol/ L 3.5-5. 3 normal Not Available [address], [address], 11/04/2023 22:55:39 11/03/19 24 11/04/2023 COMPR EHENS MATT METAB OLIC PANEL chloride 105 mmol/ L 98-110 normal Not Available [address], [address], 11/04/2023 22:55:39 11/03/19 24 11/04/2023 COMPR EHENS MATT METAB OLIC PANEL carbon dioxide 25 mmol/ L 20-32 normal Not Available [address], [address], 11/04/2023 22:55:39 11/03/19 24 11/04/2023 COMPR EHENS MATT METAB OLIC PANEL calcium 8.9 mg/dL 8.6-10 .2 normal Not Available [address], [address], 11/04/2023 22:55:39 11/03/19 24 11/04/2023 COMPR EHENS MATT METAB OLIC PANEL protein, total 6.4 g/dL 6.1-8. 1 normal Not Available [address], [address], 11/04/2023 22:55:39 11/03/19 24 11/04/2023 COMPR EHENS MATT METAB OLIC PANEL albumin 4.3 g/dL 3.6-5. 1 normal Not Available [address], [address], 11/04/2023 22:55:39 11/03/19 24 11/04/2023 COMPR EHENS MATT METAB OLIC PANEL globulin 2.1 g/dL_ (calc ) 1.9-3. 7 normal Not Available [address], [address], 11/04/2023 22:55:39 11/03/19 24 11/04/2023 COMPR EHENS MATT METAB OLIC PANEL albumin/glob ulin ratio 2.0 (calc ) 1.0-2. 5 normal Not Available [address], [address], 11/04/2023 22:55:39 11/03/19 24 11/04/2023 COMPR EHENS MATT METAB OLIC PANEL bilirubin, total 0.7 mg/dL 0.2-1. 2 normal Not Available [address], [address], 11/04/2023 22:55:39 11/03/19 24 11/04/2023 COMPR EHENS MATT METAB OLIC PANEL alkaline phosphatase 55 U/L 31-125 normal Not Available [address], [address], 11/04/2023 22:55:39 11/03/19 24 11/04/2023 COMPR EHENS MATT METAB OLIC PANEL AST 12 U/L 10-30 normal Not Available [address], [address], 11/04/2023 22:55:39 11/03/19 24 11/04/2023 COMPR EHENS MATT METAB OLIC PANEL ALT 13 U/L 6-29 normal Not Available [address], [address], 11/04/2023 22:55:39 11/03/19 24 11/04/2023 CBC (INCL UDES DIFF/ PLT) white blood cell count 6.5 thous and/u L 3.8-10 .8 normal Not Available [address], [address], 11/04/2023 22:55:40 11/03/19 24 11/04/2023 CBC (INCL UDES DIFF/ PLT) red blood cell count 4.93 nargis on/uL 3.80-5 .10 normal Not Available [address], [address], 11/04/2023 22:55:40 11/03/19 24 11/04/2023 CBC (INCL UDES DIFF/ PLT) hemoglobin 15.0 g/dL 11.7-1 5.5 normal Not Available [address], [address], 11/04/2023 22:55:40 11/03/19 24 11/04/2023 CBC (INCL UDES DIFF/ PLT) hematocrit 44.9 % 35.0-4 5.0 normal Not Available [address], [address], 11/04/2023 22:55:40 11/03/19 24 11/04/2023 CBC (INCL UDES DIFF/ PLT) MCV 91.1 fL 80.0-1 00.0 normal Not Available [address], [address], 11/04/2023 22:55:40 11/03/19 24 11/04/2023 CBC (INCL UDES DIFF/ PLT) MCH 30.4 pg 27.0-3 3.0 normal Not Available [address], [address], 11/04/2023 22:55:40 11/03/19 24 11/04/2023 CBC (INCL UDES DIFF/ PLT) MCHC 33.4 g/dL 32.0-3 6.0 normal Not Available [address], [address], 11/04/2023 22:55:40 11/03/19 24 11/04/2023 CBC (INCL UDES DIFF/ PLT) RDW 12.1 % 11.0-1 5.0 normal Not Available [address], [address], 11/04/2023 22:55:40 11/03/19 24 11/04/2023 CBC (INCL UDES DIFF/ PLT) platelet count 200 thous and/u L 140-40 0 normal Not Available [address], [address], 11/04/2023 22:55:40 11/03/19 24 11/04/2023 CBC (INCL UDES DIFF/ PLT) MPV 9.5 fL 7.5-12 .5 normal Not Available [facility] [address], [address], 11/04/2023 22:55:40 11/03/19 24 11/04/2023 CBC (INCL UDES DIFF/ PLT) absolute neutrophils 4030 cells /uL 1500-7 800 normal Not Available [address], [address], 11/04/2023 22:55:40 11/03/19 24 11/04/2023 CBC (INCL UDES DIFF/ PLT) absolute lymphocytes 1814 cells /uL 850-39 00 normal Not Available [facility] [address] [place], [address], 11/04/2023 22:55:40 11/03/19 24 11/04/2023 CBC (INCL UDES DIFF/ PLT) absolute monocytes 488 cells /uL 200-95 0 normal Not Available [address], [address], 11/04/2023 22:55:40 11/03/19 24 11/04/2023 CBC (INCL UDES DIFF/ PLT) absolute eosinophils 137 cells /uL 15-500 normal Not Available [address], [address], 11/04/2023 22:55:40 11/03/19 24 11/04/2023 CBC (INCL UDES DIFF/ PLT) absolute basophils 33 cells /uL 0-200 normal Not Available [facility] [address], [address], 11/04/2023 22:55:40 11/03/19 24 11/04/2023 CBC (INCL UDES DIFF/ PLT) neutrophils 62 % normal Not Available [address], [address], 11/04/2023 22:55:40 11/03/19 24 11/04/2023 CBC (INCL UDES DIFF/ PLT) lymphocytes 27.9 % normal Not Available [facility] [address], [address], 11/04/2023 22:55:40 11/03/19 24 11/04/2023 CBC (INCL UDES DIFF/ PLT) monocytes 7.5 % normal Not Available [address], [address], 11/04/2023 22:55:40 11/03/19 24 11/04/2023 CBC (INCL UDES DIFF/ PLT) eosinophils 2.1 % normal Not Available [address], [address], 11/04/2023 22:55:40 11/03/19 24 11/04/2023 CBC (INCL UDES DIFF/ PLT) basophils 0.5 % normal Not Available [address], [address], 11/04/2023 22:55:40 11/03/19 24 11/04/2023 URINA LYSIS , COMPL ETE W/REF FILI TO CULTU RE color YELLOW yellow normal Not Available [address], [address], 11/04/2023 22:55:41 11/03/19 24 11/04/2023 URINA LYSIS , COMPL ETE W/REF FILI TO CULTU RE appearance CLOUDY clear abnormal Not Available [address], [address], 11/04/2023 22:55:41 11/03/19 24 11/04/2023 URINA LYSIS , COMPL ETE W/REF FILI TO CULTU RE specific gravity 1.024 1.001- 1.035 normal Not Available [address], [address], 11/04/2023 22:55:41 11/03/19 24 11/04/2023 URINA LYSIS , COMPL ETE W/REF FILI TO CULTU RE pH 5.5 5.0-8. 0 normal Not Available [address], [address], 11/04/2023 22:55:41 11/03/19 24 11/04/2023 URINA LYSIS , COMPL ETE W/REF FILI TO CULTU RE glucose NEGATI VE negati ve normal Not Available [address] [address] [place], [address], 11/04/2023 22:55:41 11/03/19 24 11/04/2023 URINA LYSIS , COMPL ETE W/REF FILI TO CULTU RE bilirubin NEGATI VE negati ve normal Not Available [address] [place], [address], 11/04/2023 22:55:41 11/03/19 24 11/04/2023 URINA LYSIS , COMPL ETE W/REF FILI TO CULTU RE ketones NEGATI VE negati ve normal Not Available [address], [address], 11/04/2023 22:55:41 11/03/19 24 11/04/2023 URINA LYSIS , COMPL ETE W/REF FILI TO CULTU RE occult blood 1+ negati ve abnormal Not Available [address] [address] , [place], [address], 11/04/2023 22:55:41 11/03/19 24 11/04/2023 URINA LYSIS , COMPL ETE W/REF FILI TO CULTU RE protein NEGATI VE negati ve normal Not Available [address] [address] [place], [address], 11/04/2023 22:55:41 11/03/19 24 11/04/2023 URINA LYSIS , COMPL ETE W/REF FILI TO CULTU RE nitrite NEGATI VE negati ve normal Not Available [facility] [address] [address] [place], [address], 11/04/2023 22:55:41 11/03/19 24 11/04/2023 URINA LYSIS , COMPL ETE W/REF FILI TO CULTU RE leukocyte esterase 1+ negati ve abnormal Not Available [address] [address] [place], [address], 11/04/2023 22:55:41 11/03/19 24 11/04/2023 URINA LYSIS , COMPL ETE W/REF FILI TO CULTU RE WBC 6-10 /hpf < or = 5 abnormal Not Available [address], [address], 11/04/2023 22:55:41 11/03/19 24 11/04/2023 URINA LYSIS , COMPL ETE W/REF FILI TO CULTU RE RBC 3-10 /hpf < or = 2 abnormal Not Available [address], [address], 11/04/2023 22:55:41 11/03/19 24 11/04/2023 URINA LYSIS , COMPL ETE W/REF FILI TO CULTU RE squamous epithelial cells 20-40 /hpf < or = 5 abnormal Not Available [address], [address], 11/04/2023 22:55:41 11/03/19 24 11/04/2023 URINA LYSIS , COMPL ETE W/REF FILI TO CULTU RE bacteria MODERA TE /hpf none seen abnormal Not Available [address], [address], 11/04/2023 22:55:41 11/03/19 24 11/04/2023 URINA LYSIS , COMPL ETE W/REF FILI TO CULTU RE hyaline cast NONE SEEN /lpf none seen normal Not Available [address], [address], 11/04/2023 22:55:41 11/03/19 24 11/04/2023 URINA LYSIS , COMPL ETE W/REF FILI TO CULTU RE note This urine was joanna zed for the prese nce of WBC, RBC, bacte terrence, casts , and other forme d eleme nts. Only those eleme nts seen were repor danielle. Not Available [address], [address], 11/04/2023 22:55:41 11/03/19 24 11/04/2023 REFLE XIVE URINE CULTU RE reflexive urine culture CULTU RE INDIC ATED - RESUL TS TO FOLLO W Not Available [address] [address], [place], [address], 11/04/2023 22:55:42 11/03/19 24 11/04/2023 TSH W/REF FILI TO FT4 TSH w/reflex to FT4 1.79 mIU/L normal Refer ence Range > or = 20 Years 0.40- 4.50 Pregn margarito Range s First trime ster 0.26- 2.66 Secon d trime ster 0.55- 2.73 Third trime ster 0.43- 2.91 Not Available [address] [address] [address], [place], [address], 11/04/2023 22:55:43 11/03/19 24 11/04/2023 VITAM IN D,25- OH,TO ARELI,I A vitamin D,25-oh,tota l,ia 15 NG/mL 30-100 low Vitam in D Statu s 25-OH Vitam in D: Defic iency : <20 ng/mL Insuf ficie ncy: 20 - 29 ng/mL Optim al: > or = 30 ng/mL For 25-OH Vitam in D testi ng on patie nts on D2-bhatti pplem entat ion and patie nts for whom quant itati on of D2 and D3 fract ions is requi red, the [facility](TM ) 25-OH VIT D, (D2,D 3), LC/MS /MS is recom mike d: order code 35307 (gifty ents >2yrs ). See Note 1 Note 1 For addit ional infor janelle gaytan refer to http: //jorge cherryQue stDia gnost ics.c om/fa q/FAQ 199 (This link is being provi ded for infor pietro amyo/ educerika ortez purpo ses only. ) Not Available [facility] [address] [address] [place], [address], 11/04/2023 22:55:43 11/03/19 24 11/04/2023 HEMOG LOBIN A1C hemoglobin A1C 5.2 %_of_ total _HGB <5.7 normal For the purpo se of sridevi betts for the prese nce of diabe lashae: <5.7% Consi stent with the absen ce of diabe lashae 5.7-6 .4% Consi stent with incre ased risk for diabe lashae (pred iabet es) > or =6.5% Consi stent with diabe lashae This assay resul t is consi stent with a decre ased risk of diabe lashae. Curre ntly, no conse nsus exist s juwan snachez use of hemog lobin A1c for diagn osis of diabe lashae in child irish. Accor ding to Ameri can Diabe lashae Assoc iatio n (ADA) guide lines , hemog lobin A1c <7.0% repre sents optim al contr ol in non-p regna nt diabe tic patie nts. Diffe rent metri cs may apply to speci fic patie nt popul ation s. [facility] ar[facility] of Medic al Care in Diabe lashae(A DA). This test was perfo rmed on the [facility] shadi c503 platf orm. Effec tive , a ericka dorsey in test platf orms from the [facility] tect to the [facility] sh[facility] c503 may have shift ed HbA1c resul ts enrique red to histo rical resul ts. Based on labor atory valid ation testi ng condu cted at [facility] , the [facility] platf orm relat matt to the [facility] platf orm had an avera ge incre ase in HbA1c value of < or = 0.3%. This diffe rence is withi n accep danielle varia bilit y estab lishe d by the Natio nal Glyco hemog lobin Stand ardiz ation Progr am. Note that not all indiv idual s will have had a shift in their resul ts and direc t enrique rison s betwe en histo rical and curre nt resul ts for testi ng condu cted on diffe rent platf orms is not recom mike hernandez Not Available [facility] [address] [place], [address], 11/04/2023 22:55:44 11/03/19 24 11/04/2023 CULTU RE, URINE , ROUTI NE culture, urine, routine SEE NOTE CULTU RE, URINE , ROUTI NE Micro Numbe r: [id number] Test Statu s: Final Speci men Sourc e: Urine Speci men Quali ty: Adequ ate Resul t: No Growt h Not Available [facility] [address] [address], [place], [address], 11/04/2023 22:55:44 06/09/19 25 06/09/2024 MAMMO , scree alpesh, bilat eral No observ ation record ed. [email or web address] [facility] [address], [address], 06/10/2024 10:28:48 Result Notes None recorded. Problems Name Problem SNOMED Code Status Onset Date Resolution Date Notes Provider Name and Address Organization Details Recorded Time Pain in throat 962273587 Completed Not Available [facility] 3 00:59:22 Low back pain 920885344 Active Not Available [facility] 3 00:59:22 Chest pain 95953323 Completed Not Available [facility] 3 00:59:22 Pain in right foot [id number] 9107 Completed Not Available [facility] 3 00:59:23 Dehydrati on 79822096 Completed Not Available [facility] 3 00:59:23 Sinusitis 52019068 Completed Not Available [facility] 3 00:59:23 Rosacea 171515315 Active 2017 Not Available [facility] 3 00:59:23 Cough 40310806 Completed Not Available [facility] 3 00:59:23 Upper respirato ry infection 00205678 Active Not Available [facility] 3 00:59:23 Costal chondriti s 70802557 Completed Not Available [facility] 3 00:59:23 Posterior rhinorrhe a 47802337 Active Not Available [facility] 3 00:59:23 Fatigue 23244946 Completed Not Available [facility] 3 00:59:23 Overweigh t 526555800 Active 2023 Anurag Velez MD [address], [address], [place], [address] , [employer] 4 17:10:30 Cigarette smoker 62766008 Active 2023 Anurag Velez MD [address], [place], [address] , [employer] 4 17:10:39 External hordeolum 5781490 Active 2023 [place] [address], [place], [address] , [employer] 4 10:27:39 Celluliti s of periorbit al region of left eye 59061157479 9109 Active 2023 [place] [address], [place], [address] , [employer] 4 11:28:47 Blepharit is of left eyelid 42108360681 9102 Active 2023 [place] [address], [place], [address] , [employer] 4 11:44:21 Problem Notes None recorded. Procedures Surgical History Date Name Laterality Status Provider Name and Address Organization Details Recorded Time Smoking Cessation completed Anurag Velez MD [address], [address], [place], [address], [employer] 08/03/2023 17:14:34 operation on fallopian tube completed Not Available [facility] 07/23/2022 00:48:56 Imaging Results Imaging Date Name Status LastModified by Organiz ation Details LastModified Time 06/09/2024 MAMMO, screening, bilateral completed [email or web address] [facility] [address], [address], 06/10/2024 10:28:48 Procedure Notes None recorded. Medical Equipment None Reported. Medications Name Sig Start Date Stop Date Status Note LastModified by Organization Details LastModified Time cyclobenzap rine 10 mg tablet active Not Available Not Available Not Available amoxicillin 500 mg capsule TK 1 C PO QID UNTIL GONE active Not Available Not Available No t Available Augmentin 875 mg-125 mg tablet Take 1 tablet every 12 hours by oral route. 06/29 completed Not Available Not Available Not Available prednisone 10 mg tablet Take by oral route with food. Day 1-4: 60 mg, Day 5-6: 50 mg, Day 7-8: 40 mg, Day 9-10: 30 mg, Day 11-12: 20 mg, Day 13-15: 10 mg. active Not Available Not Available No t Available ibuprofen 800 mg tablet TK 1 T PO Q 6 TO 8 H PRF PAIN active Not Available Not Available No t Available benzonatate 200 mg capsule Take 1 capsule 3 times a day by oral route as needed for 10 days. active Not Available Not Available No t Available Celestone Soluspan 6 mg/mL suspension for injection Take 1 mL as needed by injection route. active [facility]# [id number] -[address] -01 Not Available Not Available Not Available Rocephin 1 gram solution for injection 06/29 completed [facility]# [id number] -7332 -01 Not Available Not Available Not Available Depo-Medrol 20 mg/mL suspension for injection Take 1 mL as needed by injection route. active [facility]# [id number] -0306 -02 Not Available Not Available Not Available Zithromax Z-Jorge 250 mg tablet TAKE 2 TABLETS (500 MG) BY ORAL ROUTE ONCE DAILY FOR 1 DAY THEN 1 TABLET (250 MG) BY ORAL ROUTE ONCE DAILY FOR 4 DAYS 06/29 completed Not Available Not Available Not Available sulfamethox azole 800 mg-trimetho prim 160 mg tablet TK 1 T PO Q 12 H FOR 3 DAYS 09/16 completed Not Available Not Available Not Available triamcinolo ne acetonide 0.1 % topical cream APPLY A THIN LAYER TO THE AFFECTED AREA(S) BY TOPICAL ROUTE 2 TIMES PER DAY active Not Available Not Available No t Available amoxicillin 500 mg tablet Take 1 tablet every 8 hours by oral route for 7 days. active Not Available Not Available No t Available Kenalog 40 mg/mL suspension for injection 06/29 completed [facility]# [id number] -0293 -28 Not Available Not Available Not Available Macrobid 100 mg capsule Take 1 capsule every 12 hours by oral route. active Not Available Not Available No t Available Mobic 15 mg tablet Take 1 tablet every day by oral route with meals for 30 days. 10/22 completed Not Available Not Available Not Available oxycodone-a cetaminophe n 5 mg-325 mg tablet active Not Available Not Available No t Available doxycycline monohydrate 50 mg tablet TK 1 T PO QD active Not Available Not Available No t Available benzonatate 100 mg capsule TK 1 C PO Q 4 TO 6 H PRN 11/02 completed Not Available Not Available Not Available doxycycline monohydrate 100 mg capsule TAKE 1 CAPSULE BY MOUTH TWICE DAILY FOR 5 DAYS DIRECTED active Not Available Not Available No t Available cephalexin 500 mg capsule 08/18 completed Not Available Not Available Not Available cyanocobala min (vit B-12) 1,000 mcg/mL injection solution Inject 1 mL every month by intramusc ular route. active [facility]# [id number] -0044 -01 Not Available Not Available Not Available oxybutynin chloride ER 5 mg tablet,exte nded release 24 hr active Not Available Not Available Not Available montelukast 10 mg tablet Take 1 tablet every day by oral route in the evening for 30 days. active Not Available Not Available No t Available ibuprofen 600 mg tablet active Not Available Not Available Not Available levofloxaci n 750 mg tablet active Not Available Not Available Not Available methylpredn isolone 4 mg tablets in a dose pack active Not Available Not Available Not Available hydrocortis one 2.5 % topical ointment 07/22 completed Not Available Not Available Not Available fluticasone propionate 50 mcg/actuati on nasal spray,suspe nsion Inhale 2 sprays every day by intranasa l route in the morning for 30 days. active Not Available Not Available No t Available metronidazo le 0.75 % topical gel APPLY A THIN LAYER TO THE AFFECTED AREA(S) BY TOPICAL ROUTE 2 TIMES PER DAY IN THE MORNING AND EVENING active Not Available Not Available No t Available doxycycline hyclate 100 mg tablet Take 1 tablet twice a day by oral route for 14 days. active Not Available Not Available No t Available loratadine 10 mg tablet TK 1 T PO QD 07/25 completed Not Available Not Available Not Available naproxen 500 mg tablet Take 1 tablet twice a day by oral route. 07/22 completed Not Available Not Available Not Available nicotine 7 mg/24 hr daily transdermal patch APPLY 1 PATCH TOPICALLY TO THE SKIN EVERY DAY DIRECTED active Not Available Not Available No t Available cyclobenzap rine 5 mg tablet TK 1 T PO D HS FOR 30 DAYS active Not Available Not Available No t Available Tri-Sprinte c (28) 0.18 mg(7)/0.215 mg(7)/0.25 mg(7)-35 mcg tablet TK 1 T PO D active Not Available Not Available No t Available metronidazo le 1 % topical gel APPLY TO THE AFFECTED AREA(S) on face BY TOPICAL ROUTE ONCE DAILY ; RUB IN GENTLY AND COMPLETEL Y 07/22 completed Not Available Not Available Not Available intrauterin e device (IUD) Mirena October 20192020 active Not Available Not Available Not Avai lable ProAir HFA 90 mcg/actuati on aerosol inhaler INHALE 2 PUFFS PO Q 4 H PRN active Not Available Not Available No t Available diclofenac 1 % topical gel APPLY 2 GRAMS TO THE AFFECTED AREA(S) BY TOPICAL ROUTE 4 TIMES PER DAY as needed active Not Available Not Available No t Available ProChamber active Not Available Not Av ailable Not Available 28 mg iron-800 mcg tablet TK 1 T PO QD 07/22 completed Not Available Not Available Not Available Virtussin AC 10 mg-100 mg/5 mL oral liquid TK 10 ML PO Q 4 H PRN 07/22 completed Not Available Not Available Not Available Fluarix Quad (PF) 60 mcg (15 mcg x 4)/0.5 mL IM syringe active Not Available Not Available N ot Available Hair, Skin and Nails (biotin) active Not Available Not Available Not Available Vitals Date Recorded Body mass index (BMI) Body height Oxygen saturation Oxygen saturation in Arterial blood by Pulse oximetry Heart rate Respiratory rate Body temperature Body weight Systolic blood pressure Diastolic blood pressure Provider Name and Address Organization Details Last Updated DateTime 1 29.5 kg/m2 167.64 cm 98 % 98 % 93 /min 16 /min 98.6 [degF] 30376.4 g 118 mm[Hg] 76 mm[Hg] Not Available [facility] 3 00:51:45 Date Recorded Body mass index (BMI) Body height Oxygen saturation Oxygen saturation in Arterial blood by Pulse oximetry Heart rate Body temperature Body weight Systolic blood pressure Diastolic blood pressure Provider Name and Address Organization Details Last Updated DateTime 2 28.7 kg/m2 167.64 cm 98 % 98 % 85 /min 98.41 [degF] 39661.4 4 g 118 mm[Hg] 72 mm[Hg] Not Available [facility] 3 00:51:45 Date Recorded Body weight Body mass index (BMI) Body height Oxygen saturation Oxygen saturation in Arterial blood by Pulse oximetry Respiratory rate Heart rate Body temperature Systolic blood pressure Diastolic blood pressure Provider Name and Address Organization Details Last Updated DateTime 3 49099.7 7 g 29.3 kg/m2 170.18 cm 98 % 98 % 18 /min 88 /min 99.1 [degF] 134 mm[Hg] 78 mm[Hg] SERGIO Segura [place] [facility] 3 16:07:44 Date Recorded Body height Body mass index (BMI) Body weight Body temperature Heart rate Respiratory rate Oxygen saturation Oxygen saturation in Arterial blood by Pulse oximetry Provider Name and Address Organization Details Last Updated DateTime 4 170.18 cm 29.3 kg/m2 83060.1 2 g 98.1 [degF] 86 /min 16 /min 99 % 99 % Chris Wynne [place] [facility] 4 17:04:46 Date Recorded Systolic blood pressure Diastolic blood pressure Provider Name and Address Organization Details Last Updated DateTime 08/03/2023 118 mm[Hg] 72 mm[Hg] Anurag Velez MD [address] [place] [address] Rav[place], [facility] [address], [place], [address], [place] [facility] 08/03/2023 17:07:33 Social History Question Answer Notes LastModified by Organizat ion Details LastModified Time Tobacco Smoking Status Current Every Day Smoker Not Available [facility] 07/23/2022 00:46:34 Do You Have An Advance Directive? No [email or web address] Information not available 07/29/2022 What Is Your Level Of Alcohol Consumption? Occasional [id number] Information not available 07/23/2022 Is Blood Transfusion Acceptable In An Emergency? Yes [email or web address] Information not available 07/29/2022 What Is Your Level Of Caffeine Consumption? Occasional MIGRATION.67589 [id number] Information not available 07/23/2022 What Is Your Code Status? Full Code [email or web address] Information not available 07/29/2022 In The 14 Days Before Symptom Onset, Have You Had Close Contact With A Laboratory-confi rmed COVID-19 While That Case Was Ill? No [email or web address] Information not available 07/29/2022 In The 14 Days Before Symptom Onset, Have You Had Close Contact With A Person Who Is Under Investigation For COVID-19 While That Person Was Ill? No [email or web address] Information not available 07/29/2022 What Type Of Diet Are You Following? REGULAR MIGRATION.79457 [id number] Information not available 07/23/2022 What Is The Highest Grade Or Level Of School You Have Completed Or The Highest Degree You Have Received? ON21312-2 MIGRATION.82691 36643 Information not available 07/23/2022 What Is Your Occupation? [employer] MIGRATION.98110 80086 Information not available 07/23/2022 Have There Been Any Changes To Your Family Or Social Situation? No MIGRATION.24494 [id number] Information not available 07/23/2022 Do You Use Insect Repellent Routinely? No MIGRATION.40167 52260 Information not available 07/23/2022 Where Do You Live? [place] MIGRATION.33525 89503 Information not available 07/23/2022 Do You Have A Medical Power Of Onsite Case Manager? No [email or web address] Information not available 07/29/2022 How Many Children Do You Have? 3 [email or web address] Information not available 07/29/2022 Do You Have Any Pets? No MIGRATION.33949 63103 Information not available 07/23/2022 Do You Use Protection During Sex? No [email or web address] Information not available 07/29/2022 What Is Your Relationship Status? MIGRATION.39456 90089 Information not available 07/23/2022 Do You Use Your Seat Belt Or Car Seat Routinely? Yes MIGRATION.44345 65852 Information not available 07/23/2022 Are You Sexually Active? Yes [email or web address] Information not available 07/29/2022 Do You Have Smoke And Carbon Monoxide Detectors In Your Home? Yes MIGRATION.23258 28623 Information not available 07/23/2022 Are You Passively Exposed To Smoke? Yes MIGRATION.44600 70170 Information not available 07/23/2022 Are There Any Smokers In Your House? Yes MIGRATION.98364 [id number] Information not available 07/23/2022 How Much Tobacco Do You Smoke? 1 PPW MIGRATION.05879 38122 Information not available 07/23/2022 Do You Participate In Social Media? Yes MIGRATION.62752 80532 Information not available 07/23/2022 Do You Feel Stressed (tense, Restless, Nervous, Or Anxious, Or Unable To Sleep At Night)? [id number] MIGRATION.59806 77460 Information not available 07/23/2022 Do You Use Sunscreen Routinely? No MIGRATION.71761 27874 Information not available 07/23/2022 How Many Years Have You Smoked Tobacco? 12 MIGRATION.78776 94394 Information not available 07/23/2022 Have You Recently Traveled Abroad? No [email or web address] Information not available 07/29/2022 Are You Currently In School? No MIGRATION.58052 00410 Information not available 07/23/2022 Do You Have Any Dietary Restrictions? No MIGRATION.32057 29550 Information not available 07/23/2022 Sex: Female Functional Status Question Answer Note LastModified by Organizat ion Details LastModified Time What is your exercise level? Moderate [id number] Information not available 07/23/2022 Mental Status None recorded. Family History Relationship Description Onset Age of this Age Resolved Age Notes LastModified by Organization Details LastModified Time Father Myocardial infarction [id number] Not available 07/23/2022 00:49:00 Notes:arthritis on both side s Medical History No medical history recorded. Gynecological History Statement/Question Response Date of Last Colonoscopy Date of LMP Most Recent Bone Density Date of Last Pap Smear Current Control Method IUD Most Recent Mammogram Obstetrics History GPAL:G 3 P 3 0 0 3 Type Value Full Term 3 Living 3 Total 3 Immunizations Vaccine Type Date Status Note Provider Nam e and Address Organization Details Recorded Time Influenza, split virus, quadrivalent, preservative 9 completed Not Available [facility] 07/23/2022 01:17:27 Tdap 8 completed Not Available [facility] 07/23/2022 01:17:27 Influenza, split virus, quadrivalent, PF 0 completed Not Available [facility] 07/23/2022 01:17:28 Influenza, split virus, trivalent, PF 3 completed Not Available [facility] 07/23/2022 01:17:28 Past Encounters Encounter ID Performer Location Encounter Start Date Encounter Closed Date Diagnosis/Indication Diagnosis SNOMED-CT Code Diagnosis ICD10 Code Diagnosis Note [id number] [address] 07/25/2020 00:00:00 07/25/2020 18:10:[id number] [address] 07/26/2021 00:00:00 07/26/2021 17:16:00 [id number] Kaylynn Kaur NP [address] [address] 07/29/2022 15:54:13 07/29/2022 16:39:23 Anemia screening 163785067 Z13.0 Diabetes m ellitus screening 792491579 Z13.1 Thyroid di sorder screening 885142752 Z13.29 Hyperlipid emia screening 077721873 Z13.220 Adult heal th examination 892598409 Z00.00 Encouraged well blanaced meals, active lifestyle, and routine vision and dental appts. [id number] Anurag Velez MD [address] [address] 08/03/2023 16:53:27 08/03/2023 17:22:02 Adult health examination 169749125 Z00.00 Overweight 159561484 E66 .3 Cigarette smoker 1702461 7 F17.210 Screening for disorder 163007567 Z13.[id number] [place] [facility] [address] [place] [address] 09/24/2023 10:22:07 09/24/2023 11:50:13 Blepharitis of left eyelid 9186194744 56824 H01.006 Avoid eye makeupAppl y warm compress for 5-10 minutes 4 times dailyRetur n to the clinic if not resolved in 10-14 days or if redness spreads, vision begins to change, or fevers occur.Util ize ibuprofen OTC PRN for pain and inflammati on Health Concerns Section Related Observation LastModified by Organization Detai ls LastModified Time None Recorded Concern Status LastModified by Organization Details LastModified Time None Recorded Advance Directives Directive N: Payers Encounter Date Sequence Insurance Name Policy Number Policy Tim Covered Member ID Tim Member ID Guarantor Name 07/29/2022 1 [facility] - DOS PRIOR TO 2024 (PPO) Dilip Kiser [id number] Aruna Kiser 08/03/2023 1 [facility] - DOS PRIOR TO 2024 (PPO) Dilip Kiser [id number] Aruna Kiser 09/24/2023 1 [facility] [place] - DOS PRIOR TO 2024 (PPO) Dilip Kiser [id number] Aruna Kiser Notes Date Note Type Note Provider Name and Address Organization Details Recorded Time 08/03/2023 text/html Pt is here for h er annual exam. Doing overall well. Denies any concerns. Anurag Velez MD [address] [place] [address], [phone], [facility] 08/03/2023 17:21:28 09/24/2023 text/html Aruna Oliver is a 43 year old female patient on telephonic visit to discuss and eye complaint. She has a stye in her left eye, this began Thursday night with pain in the upper eyelid. Her eye is swollen today, almost shut. She declines visual changed or fevers. There is redness and inflammation to the eyelid. She denies recent illness. [email or web address] [place] [address] [facility], [facility] [address], [place], [address], [place] [facility] 09/24/2023 11:48:39 OBGyn Episode No OBEpisode recorded.
--- OUTSIDE RECORDS SUMMARY | 2024-08-06 19:48 | XMS_ITS | Referral Summary ---
Author Organization [facility] Address [address] [place] [address] Care Team Providers Care Fish Checker Name Role Phone Unavailable Primary Care Provider Unavailabl e Source Comments [facility],non-owned Affiliates and Associated Physician Practices is amultiple site organization consisting of ambulatory clinics and hospital sitesin [place], [place], [place] and [place]. This disclosure is being madepursuant to the Care Everywhere program and may not contain all information available regarding this patient. Last updated 18.[facility] Allergies No known active allergies Medications * Be aware that medications may not be up to date on this document. Alwaysverify current medications with the patient. Medication Sig Dispensed Refills Start Date End Date Status diclofenac sodium (VOLTAREN) 75 MG tablet Take 1 Tab by mouth 2 times daily. 60 Tab 4 02/04/2010 Active Active Problems Problem Noted Date Diagnosed Date [...] Mass Index 26.47 02/04/2010 7:48 PM CDT Plan of Treatment Not on file
--- OUTSIDE RECORDS SUMMARY | 2024-08-06 19:48 | XMS_ITS | Clinical Summary ---
Author Organization [facility] Address [address] [place] [address] Care Team Providers Care Optical Instruments Supervisor Name Role Phone Anurag Velez MD Primary Care Provider [phone] Allergies No known active allergies Medications levonorgestreL [...] [] Rhogam (if Rh neg): [x] GBS Encounters Date Type Department Care Team Description 06/09/2024 8:09 AM ACID CONCENTRATOR - 06/09/2024 11:59 PM ACID CONCENTRATOR Hospital Encounter [facility] Breast Imaging [address] [place] [phone] Screening mammogram, encounter for Discharge Disposition: Discharge to home or self care from Last 3 Months Immunizations Immunization Administration Dates Next Due Tdap 01/27/2019 Surgical History Surgery Date Site/Laterality Comments SALPINGECTOMY BREAST BIOPSY 09/29/2014 Right Benign Fibrosis Medical History Medical History Date Comments Hyperhidrosis Family History Medical History Relation Name Comments Hypertension Father Arthritis Mother Osteopenia Mother Hypertension Paternal Grandfather Breast cancer Neg Hx Relation Name Status Comments Father Mother Paternal Grandfather Social History Tobacco Use Types Packs/Day Years Used Date Smoking Tobacco: Some Days Cigarettes Last attempted to quit: 09/02/2018 Smokeless Tobacco: Never Alcohol Use Standard Drinks/Week Comments Yes 0 (1 standard drink = 0.6 oz pur e alcohol) [place] Depression Scale Answer Date Recorded [place] Depression Scale Total 0 06/09/2019 The thought of harming myself has occurred to me . Never 06/09/2019 Comments No Sex and Gender Information Value Date Recorded Sex Assigned at Not on file Legal Sex Female 3:57 PM ACID CONCENTRATOR Gender Identity Not on file Sexual Orientation Not on file Obstetrics History Para Term AB IAB SAB Ectopic Multiple Livin g Live Births 3 3 3 3 3 Date Outcome GA Total Labor Labor/2nd/3rd Weight Sex Type Anes PTL Arlene A1 A5 Name Clin 11/16 Term 39w 0d 3.43 kg (7 lb 9 oz) M Vag-S pont Livin g [place] 10/25 Term 39w 0d 3.374 kg (7 lb 7 oz) F Vag-S pont Epidura l Odell Doty y 03/29 Term 39w 6d Vag-V acuum Odell banerjee Comments 05/13 LTR 14.1% Last Filed Vital Signs Vital Sign Reading [...] 11/06/2021 3:14 PM CDT Plan of Treatment Health Maintenance Due Date Last Done Comments Varicella Vaccines (1 of 2 - 13+ 2-dose series) 1994 Hepatitis B Screening 1999 Pneumococcal vaccine <65 (1 of 2 - PCV) 02/16/2000 Cervical Cancer Screening 06/09/2020 06/09/2019, Depression Screening 06/09/2020 06/09/2019 Regular Well Visit/Exam 18-64 07/02/2021 07/02/2020 Influenza Vaccine (#1) 2024 , 04/04/2019, 05/24/2013 Breast Cancer Screening-Mammogram 06/09/2025 06/09/2024, 01/22/2023, 09/13/2021, Additional history exists DTaP/Tdap/Td Vaccine (3 - Td or Tdap) 01/27/2029 01/27/2019, 07/16/2017, 12/17/1994 Hepatitis C Screening Completed 09/07/2018 HPV Vaccines Aged Out No longer eligi ble based on patient's age to complete this topic Procedures Procedure Name Priority Date/Time Associated Diagnosis Comments SCREENING MAMMOGRAM BILATERAL W DAVID Schedule Routine, Read Routine (OP Routine) 06/09/2024 8:29 AM ACID CONCENTRATOR Screening mammogram, encounter for THINPREP PAP WITH HPV Routine 06/09/2019 4:07 PM ACID CONCENTRATOR Encounter for annual routine gynecological examination HEPATITIS C ANTIBODY Routine 09/07/2018 6:04 PM CDT Missed menses from Last 3 Months or Most Recently Relevant to Health Maintenance Results * Screening Mammogram Bilateral W David (06/09/2024 8:29 AM ACID CONCENTRATOR) Anatomical Region Laterality Modality Breast Bilateral Mammography Impressions 06/09/2024 8:33 AM ACID CONCENTRATOR BI-RADS ATLAS category (overall): 2 - Benign There is no mammographic evidence of malignancy. A 1 year screening mammogram is recommended. The patient has been or will be contacted. We recommend annual screening mammography for women at average risk of breast cancer beginning at age 40, based on guidelines of the [employer] (ACR Practice Parameter for the Performance of Screening and Diagnostic Mammography) and [employer]. For women with and elevated risk of breast cancer, please refer to the ACR Practice Parameter for specific screening recommendations. The patient will be entered into a reminder system with a target due date of 1 year for her next screening exam. Narrative 06/09/2024 8:33 AM ACID CONCENTRATOR Screening Mammogram Bilateral W David: 06/09/24 The study was acquired using full field digital technology and interpreted from soft copy. 2D digital mammographic views, as well as 3D digital tomosynthesis were performed in the CC and MLO projections. CLINICAL: Screening mammogram, encounter for. No relevant medical history has been documented for this patient. History of breast cancer in Neg Hx. COMPARISONS: 01/22/2023 Screening Mammogram Bilateral W David 09/13/2021 US Breast Right Limited 09/13/2021 Diagnostic Mammogram Bilateral W David 09/29/2014 US Guided Breast Biopsy Right 06/29/2014 US Breast Right Complete 06/29/2014 Diagnostic Mammogram Bilateral W David BREAST TISSUE: The breasts are extremely dense, which lowers the sensitivity of mammography. FINDINGS: There is a biopsy clip in the right breast. There are benign calcifications in both breasts.There is no new suspicious finding in either breast on mammogram. us Self Screening Mammogram IMG MAMMO PROCEDURES Fi nal Result * ThinPrep Pap with HPV (06/09/2019 4:07 PM ACID CONCENTRATOR) 06/09/2019 4:07 PM ACID CONCENTRATOR 06/13/2019 12:36 PM ACID CONCENTRATOR Narrative [facility] - 06/16/2019 9:21 AM ACID CONCENTRATOR [facility] Department of Pathology [address] [place], [place] [id number] Final Report with Addendum Patient Name: WOODROW KISER Address: [address] [place] [address] Gender: F : 1980 (Age: 39) Service: Laboratory Location: Lab [facility] #: [id number] Patient Type: Ref Lab Taken: 06/09/2019 Received: 06/13/2019 Accessioned:: 06/14/2019 Reported: 06/16/2019 Physician(s): Mona Coelho M.D. [facility] Diagnosis: Source of Specimen: SCREENING IMAGED PAP [...] determined by the Surgical Pathology Department at [facility] as part of an ongoing quality assurance auditor program and in compliance with federally mandated [...] characteristics determined by the Surgical Pathology Department [facility]. It has not been cleared or approved by the U. S. Food and Drug Administration. Mona Coelho MD LAB CYTOLOGY [place] [address], [facility] [phone] * Hepatitis C antibody (09/07/2018 6:04 PM CDT) Hep C Ab NONREACT NONREACTIVE [facility] Comment: Siemens CentaurXP using AMANDA (chemiluminescent [...] PM CDT Narrative Resulting Agency Comment CLI us Renee Flynn CNM LAB MICROBIOLOGY - GENE RAL ORDERABLES Final Result [facility] [address] [place] [address], [facility] [phone] from Last 3 Months or Most Recently Relevant to Health Maintenance Insurance [facility] H[facility]/PPO Address: [address] [address] [facility] H[facility]/PPO Address: [facility] [address] [place] [address] [employer] [facility] HMO/PPO Address: [address] [address] [place] [address] Care Teams Optical Instruments Supervisor Relationship Specialty Start Date End Date Anurag Velez MD Shanda [facility] [place] [address] PCP - General Family Medicine 04/20/24
--- OUTSIDE RECORDS SUMMARY | 2024-08-06 19:48 | XMS_ITS | Clinical Summary ---
Author Organization [facility] Address [address] [place] [address] Care Team Providers Care Pharmacy Director Name Role Phone Unavailable Primary Care Provider Unavailabl e Source Comments [facility],non-owned Affiliates and Associated Physician Practices is amultiple site organization consisting of ambulatory clinics and hospital sitesin [place], [place], [place] and [place]. This disclosure is being madepursuant to the Care Everywhere program and may not contain all information available regarding this patient. Last updated 18.[facility] Allergies No known active allergies Medications * [...] 02/04/2010 7:48 PM CDT Plan of Treatment Health Maintenance Due Date Last Done Comments LIPID TESTING 1980 MAMMOGRAM 1980 PAP SMEAR 1980 HIV SCREENING 02/16/1996 HEPATITIS C SCREENING 02/11/1999 DTAP/TDAP/TD VACCINES (1 - Tdap) 02/16/2000 HEPATITIS B VACCINE (1 of 3 - 19+ 3-dose series) 02/16/2000 COVID-19 VACCINE (1 - 2023-2 5 season) 2024 INFLUENZA VACCINE (#1) 2024 DEPRESSION SCREENING 05/25/2024 ZOSTER VACCINE (1 of 2) 2031 HIB VACCINE Aged Out No longer eligi ble based on patient's age to complete this topic HPV VACCINE Aged Out No longer eligi ble based on patient's age to complete this topic MENINGOCOCCAL (Group B) VACC INE SHARED DECISION-MAKING Aged Out No longer eligibl e based on patient's age to complete this topic MENINGOCOCCAL GROUPS A/C/Y/W VACCINE Aged Out No longer eligible b ased on patient's age to complete this topic PNEUMOCOCCAL VACCINE Aged Out No long er eligible based on patient's age to complete this topic
[2024-08-06 19:59] VITALS: BP 135/90; PULSE 109; RESP 16; TEMP 36.8; O2SAT 100
--- NOTE | 2024-08-06 20:02 | ED.LOWEXIN ---
HPI - Extremity Injury (Lower) General Chief Complaint: Extremity Injury, Lower Stated Complaint: rt ankle injury History of Present Illness HPI Narrative: 44-year-old patient presents today with complaints of right ankle and foot pain that started around 330 today. Patient was trying to put a car seat and her truck when she ended up rolling her ankle on sure which direction and following of the truck landing on her butt. Does not have any other pain except her right foot. Did do ibuprofen about 7:00 p.m.. States that looked swollen and bruised at home. Pain with weight-bearing. Related Data Home Medications ?Medication ?Instructions ?Recorded ?Confirmed ?Last Taken ?Type No Home Medications 08/06/24 08/06/24 Unknown History Allergies Allergy/AdvReac Type Severity Reaction Status Date / Time No Known Allergies Allergy Verified 08/06/24 20:01 Review of Systems Review of Systems: All systems reviewed & are unremarkable except as noted in HPI and below Eyes: Eyes: Reports as per HPI ENT: Reports as per HPI Cardiovascular: Cardiovascular: Reports as per HPI Respiratory: Respiratory: Reports as per HPI Gastrointestinal: Gastrointestinal: Reports as per HPI Genitourinary: Genitourinary: Reports as per HPI Musculoskeletal: Musculoskeletal: Reports as per HPI Integumentary/Breasts: Skin/Breast: Reports as per HPI Neurologic: Reports as per HPI Psychiatric: Psychiatric: Reports as per HPI Endocrine: Endocrine: Reports as per HPI Hematologic/Lymphatic: Hematologic/Lymphatic: Reports as per HPI Allergic/Immunologic: Allergic/Immunologic: Reports as per HPI Exam Const: General: cooperative, healthy appearing, comfortable, no acute distress and well developed Orientation/consciousness: patient oriented x3 HENMT: Head: normal to inspection Eyes: General: appearance normal, both eyes and all related structures Resp: Effort & Inspection: normal respiratory effort and able to speak in complete sentences Auscultation: clear to auscultation bilaterally Cardio: Rate: regular rate Rhythm: regular rhythm Heart sounds: S1 normal heart sound present and S2 normal heart sound present Skin: General skin exam: normal color Neuro: General: patient oriented x3 Cognition (Neuro): normal cognition Speech: normal speech Extrem: Right lower extremity: ankle Details: tenderness Location: of the lateral malleolus and swelling Details: laterally (minimal) and foot Details: tenderness Location: of the dorsal foot Location: distally and laterally Psych: Mental Status: mental status grossly normal Course Course Level of Care: Express Care Visit Vital Signs Vital signs: Vital Signs Temperature 98.2 F 08/06/24 19:59 Pulse Rate 109 H 08/06/24 19:59 Respiratory Rate 16 08/06/24 19:59 Blood Pressure 135/90 08/06/24 19:59 Pulse Oximetry 100 08/06/24 19:59 Oxygen Delivery Room Air 08/06/24 19:59 Temperature 98.2 F 08/06/24 19:59 Pulse Rate 109 H 08/06/24 19:59 Respiratory Rate 16 08/06/24 19:59 Blood Pressure 135/90 08/06/24 19:59 Pulse Oximetry 100 08/06/24 19:59 Oxygen Delivery Room Air 08/06/24 19:59 MDM - Extremity Injury (Lower) MDM Narrative Medical decision making narrative: 44-year-old female HPI as noted. Differentials include but not limited to ankle fracture metatarsal fracture ankle sprain, derangement of ankle. Tenderness over lateral malleolus and dorsal distal right foot. X-ray of ankle and foot obtained to rule out fracture. No fracture noted or acute injury on imaging. Suspect a strain. Saeid wrap, rice, follow-up with primary care in 1-2 weeks if pain persists. Differential Diagnosis Differential diagnosis: Likely ankle sprain and strain, fracture of toe and ankle fracture Imaging Data Attestation: I personally reviewed and interpreted this imaging study as follows: Radiologist's impression: Impressions Ankle X-Ray 08/06/24 20:26 IMPRESSION: No acute osseous finding in the right foot or ankle. Foot X-Ray 08/06/24 20:26 IMPRESSION: No acute osseous finding in the right foot or ankle. Discharge Plan Discharge Clinical Impression: Ankle sprain and strain Patient Disposition: Home, Self-Care Condition: Stable Instructions: Antibiotic Form, Ankle Sprain (DC) Additional Instructions: Tylenol or ibuprofen as needed for pain or fever, ice area 20 minutes at a time couple times a day. Use Saeid wrap for compression. Elevate when sitting. Weight-bearing as tolerated. Patient Language: Russian Prescriptions: No Action No Home Medications Follow-up/Referrals: UNKNOWN,DOCTOR [Primary Care Provider] - ( In 1-2 weeks if no improvement) Time of Disposition: 20:47
== END 2024-08-06 20:50 | disposition home or self-care (01) ==
PROVIDERS: Emergency Provider Nurse Practitioner Family
DX: S93.401A Sprain of unspecified ligament of right ankle, initial encounter (principal); S96.911A Strain of unspecified muscle and tendon at ankle and foot level, right foot, initial encounter; X50.9XXA Other and unspecified overexertion or strenuous movements or postures, initial encounter
CPT/HCPCS: 73610; 73630; 99203; G0463